=== PATIENT | male | born 1965 | race Caucasian/White ===

== ENCOUNTER → 2017-05-24 15:54 | Outpatient (CLI) | payer MEDICARE, MEDICAID, SELFPAY ==
--- NOTE | 2017-05-24 15:56 | CT_ITS ---
STUDY: CT LUMBAR SPINE WITHOUT CONTRAST REASON FOR EXAM: Male, 52 years old. Malignant neoplasm of the prostate. RADIATION DOSAGE (If Supplied By Facility): CTDIvol = ( 19.66 ) mGy, DLP = ( 477.68 ) mGycm TECHNIQUE: The patient was scanned in a multi detector CT scanner. High resolution transaxial imaging was performed. Images were obtained from T12 to the same. Sagittal and coronal images were reconstructed. Individualized dose optimization techniques were used for this CT. COMPARISON: Thoracic spine CT, May 24, 2017. Bone scan, March 18, 2000 8T FINDINGS: Normal lumbar lordosis. There is no substantial scoliosis. Normal alignment of the lumbar vertebral bodies. There is a vague area of sclerosis centrally within the body of L2. There is minimal focus of sclerosis in the right lateral L2 vertebral body. There is also a focal area of sclerosis anteriorly at L5. Also noted are vague area of sclerosis in both des and right sacral ala. There is no fracture. L1-2: Normal endplates. Normal disc height and morphology. Normal bilateral facet joints. Normal central canal and bilateral lateral recesses. Normal bilateral intervertebral neural foramina. L2-3: Normal endplates. Normal disc height and morphology. Normal bilateral facet joints. Normal central canal and bilateral lateral recesses. Normal bilateral intervertebral neural foramina. L3-4: Normal endplates. Normal disc height and morphology. Normal bilateral facet joints. Normal central canal and bilateral lateral recesses. Normal bilateral intervertebral neural foramina. L4-5: Normal endplates. Normal disc height and morphology. Normal bilateral facet joints. Normal central canal and bilateral lateral recesses. Normal bilateral intervertebral neural foramina. L5-S1: Normal endplates. Normal disc height and morphology. Normal bilateral facet joints. Normal central canal and bilateral lateral recesses. Normal bilateral intervertebral neural foramina. There appears to be a small calcification in the right renal calyx without hydronephrosis. There is atherosclerotic changes of the visualized aorta. CT/Spine Lumbar without Contrast IMPRESSION: Multiple vague areas of sclerosis lumbar spine and upper pelvis. These may represent small areas of metastatic activity. Electronically Signed: Franko Paez DO at 17:19 EST Tel [phone], Service support ,
--- NOTE | 2017-05-24 15:56 | CT_ITS ---
STUDY: CT THORACIC SPINE WITHOUT CONTRAST REASON FOR EXAM: Male, 52 years old. Prostate cancer. RADIATION DOSAGE (If Supplied By Facility): CTDIvol = ( 26.08 ) mGy, DLP = ( 836 ) mGycm TECHNIQUE: The patient was scanned in a multi detector CT scanner. High resolution imaging was performed. Images were obtained from T1 to L. Sagittal and coronal images were reconstructed. Individualized dose optimization techniques were used for this CT. COMPARISON: Bone scan, May 18, 2017. FINDINGS: Normal visualized cervical spine. Normal kyphosis of the thoracic spine. There is no substantial scoliosis. There is marked sclerosis of the T5 vertebra without loss of vertebral axial height. There are small foci in the upper portion of T6. There are small sclerotic foci in the right lateral aspect of T7. There is a sclerotic focus anteriorly in the right of T9. There is a sclerotic focus in the T11 vertebral body which extends into the left posterior elements. There is no evidence of endplate spondylosis. Normal disc spaces heights. The soft tissue structures are unremarkable. CT/Spine Thoracic without Contras IMPRESSION: Sclerotic foci involving T5, T6, T7 and T9 and T11. This is most marked in T5 which correlates with the area of intense activity in the mid thoracic spine on bone scan. There is involvement of the left lateral elements of T11 which also correlates with the focus of intense activity at this level on bone scan. These most likely represent metastatic involvement. Electronically Signed: Franko Paez DO at 17:06 EST Tel [phone], Service support ,
--- NOTE | 2017-05-24 15:56 | CT_ITS ---
STUDY: CT PELVIS WITHOUT CONTRAST REASON FOR EXAM: Male, 52 years old. Malignant neoplasm prostate cancer RADIATION DOSAGE (If Supplied By Facility): CTDIvol = ( 21.74 ) mGy, DLP = ( 615.17 ) mGycm TECHNIQUE: Transaxial 2.5 mm imaging of the pelvis was performed without oral contrast, and without intravenous administration of contrast material. Multiplanar coronal and sagittal images were reformatted. Individualized dose optimization techniques were used for this CT. COMPARISON: CT abdomen and pelvis 02/18/2017 FINDINGS: Decompressed urinary bladder. Prostate is not visualized. Normal visualized small intestine. There are multiple colonic diverticula of the sigmoid colon consistent with chronic diverticulosis. There is mild wall thickening without pericolonic fat stranding. Normal appendix. There is no pelvic fluid. There is no pelvic mass lesion or lymphadenopathy. There is stable mild atherosclerosis of the distal abdominal aorta and proximal pelvic arteries. There is a stable right inguinal hernia containing fat. There are mild degenerative changes of the visualized lumbar spine. Scattered sclerotic foci in the right pubis is slightly increased since previous examination, foci along the left acetabulum, left ischium appear stable, increased sclerosis involving the L5 vertebral body, right sacrum measuring 0.9, and s2-3 measuring 2.7 cm. Additional smaller scattered foci are noted.. CT/Pelvis without IV Contrast IMPRESSION: Colonic diverticulosis, possible underlying chronic inflammation with wall thickening, however no pericolonic inflammation to suggest acute diverticulitis. Increasing sclerosis of some foci involving the lumbar spine, sacrum and pelvis. Prostate is not visualized. Stable mild arteriosclerosis, right inguinal hernia containing fat, degenerative changes. Electronically Signed: Kyung Wolf MD at 6:47 EST , Service support ,
--- NOTE | 2017-05-24 15:56 | CT_ITS ---
STUDY: CT CERVICAL SPINE WITHOUT CONTRAST REASON FOR EXAM: Male, 52 years old. Prostate cancer. RADIATION DOSAGE (If Supplied By Facility): CTDIvol = ( 25.64 ) mGy, DLP = ( 590.71 ) mGycm TECHNIQUE: High resolution transaxial imaging was performed without contrast material. Sagittal and coronal images were reconstructed. Individualized dose optimization techniques were used for this CT. COMPARISON: Bone scan, May 23, 2017. FINDINGS: Normal craniovertebral junction. There are degenerative changes of the anterior atlantoaxial articulation. Normal odontoid process. Normal cervical lordosis. Normal vertebral bodies and posterior osseous elements. There is no evidence of acute fracture or loss of vertebral axial height. C2-3: Normal endplates. Normal disc height and morphology. Normal central canal and intervertebral neuroforamina. C3-4: Normal endplates. Normal disc height and morphology. Normal central canal and intervertebral neuroforamina. C4-5: Normal endplates. Normal disc height and morphology. Normal central canal and intervertebral neuroforamina. C5-6: Normal endplates. Minimal loss of disc height. There is mild facet and uncovertebral joint degenerative change.. Normal central canal and intervertebral neuroforamina. C6-7: Loss of disc height with minimal endplate spondylosis. There is facet and uncovertebral joint degenerative change. Normal central canal is mild narrowing of the right intervertebral neuroforamen. C7-T1: Normal endplates. Normal disc height and morphology. Normal central canal and intervertebral neuroforamina. Normal visualized soft tissue structures. CT/Spine Cervical without Contras IMPRESSION: Minimal degenerative changes lower cervical spine. There is no evidence of lytic or blastic lesion. There is no fracture or subluxation. Electronically Signed: Franko Paez DO at 16:52 EST Tel [phone], Service support ,
== END ==
PROVIDERS: Visit Provider Internal Medicine Hematology & Oncology
DX: C61 Malignant neoplasm of prostate (principal); C62.90 Malignant neoplasm of unspecified testis, unspecified whether descended or undescended
CPT/HCPCS: 72125; 72128; 72131; 72192

== ENCOUNTER 2017-06-13 14:30 | Emergency (ER) | payer MEDICARE, MEDICAID, SELFPAY ==
[2017-06-13 14:34] VITALS: BP 147/88; PULSE 66; RESP 16; TEMP 37.1; O2SAT 96; BMI 29.5
--- NOTE | 2017-06-13 15:23 | EKG12_ITS ---
Test Reason : CP Blood Pressure : / mmHG Vent. Rate : 054 BPM Atrial Rate : 054 BPM P-R Int : 136 ms QRS Dur : 092 ms QT Int : 424 ms P-R-T Axes : 039 -12 040 degrees QTc Int : 402 ms Sinus bradycardia Otherwise normal ECG Confirmed by MICHELLE ODELL, BRENDA ([id number]), photography editor PETEY DIAZ ([id number] on 06/16/2017 1:58:00 PM Referred By: Williams Richter Confirmed By:BRENDA MARTINEZ MD
--- NOTE | 2017-06-13 15:23 | CT_ITS ---
STUDY: CT ABDOMEN AND PELVIS WITHOUT CONTRAST REASON FOR EXAM: Male, 52 years old. Abdominal pain. History of diverticulitis and prostate cancer. RADIATION DOSAGE (If Supplied By Facility): CTDIvol = ( 12.40 ) mGy, DLP = ( 542.22 ) mGycm TECHNIQUE: Transaxial images were obtained from the dome of the diaphragm to the symphysis pubis without oral contrast, and without intravenous contrast. Sagittal and coronal images were reconstructed. Individualized dose optimization techniques were used for this CT. COMPARISON: Prior abdomen and pelvic CT exam of February 18, 2017 FINDINGS: Stable chronic basilar lung changes. The visualized portions of the heart are within normal limits. Normal liver. Normal gallbladder and extrahepatic biliary system. Normal spleen. Normal pancreas. Normal bilateral adrenal glands. Normal size of the right kidney with multiple 1 mm nonobstructing stones without hydronephrosis or ureteral stones. Cortical scarring and distortion in the lower pole with multiple 1 to 2 mm nonobstructing stones and a group of larger stones measuring up to 4 mm in diameter in the lower pole of the left kidney. Negative for hydronephrosis or ureteral stones. Normal visualized stomach. Normal small intestine. Mild pericolonic edema associated with the mid descending colon without evidence of perforation or abscess formation. The appendix is visualized and appears normal. There is diffuse atherosclerotic calcification of the abdominal aorta, without a demonstrated aneurysm. Normal inferior vena cava. Normal retroperitoneum. Small volume urinary bladder. Status post prostatectomy. Small fatty right inguinal hernia. Sclerotic lesions of the sacrum, L5, L3, L2 and T11. Multiple osteosclerotic lesions of the pelvis bilaterally. The distribution of lesions is similar to the prior abdomen and pelvic CT exam of February 18, 2017 although there has been some increase size or at least increased sclerosis associated with the lesion above the left acetabulum, right sacrum, L5 and one of the [address]/Abdomen/Pelvis without Cont IMPRESSION: Acute diverticulitis of the mid descending colon. Mild to moderate pericolonic edema without abscess or evidence of perforation. Multiple nonobstructing renal stones as listed above without hydronephrosis or ureteral stones. Status post prostatectomy with a nondistended urinary bladder. Multiple osteoblastic lesions of the lower thoracic spine, lumbar spine and pelvis in a similar distribution to the prior exam. Multiple lesions have increased moderately in size since the prior exam as described above. Negative for evidence of a pathologic fracture. Electronically Signed: Kourtney Omer MD at 17:06 EST , Service support ,
--- NOTE | 2017-06-13 15:30 | ED.DCSUM_ITS ---
- ER Visit Summary Date of Service: 06/13/17 Chief Complaint: Abdominal pain and cough History of Present Illness: The patient is a 52 M history of prostate testicular cancer with bone metastases. He is currently undergoing oral chemotherapy. Patient reports pain to the left lower quadrant of his abdomen for the last several weeks it feels like a flare of his diverticulitis. He has not had fever but has noted chills. He is also been fighting a cough states he has been bringing up some yellow sputum. He is scheduled to see a primary care physician tomorrow for a first-time visit. Her abdominal surgeries include prostatectomy, left testicle removal, and right inguinal hernia repair. Physical Examination: Signs are unremarkable. Patient is afebrile. Head neck examination is unremarkable. Heart is regular rate and rhythm. Lung sounds are clear. Abdomen is soft with tenderness across the upper abdomen and left lower quadrant. There is no guarding or rebound. Hypoactive but present bowel sounds are noted. Test Results: BC was normal white count with hemoglobin 12.5. Chemistry studies normal. Urine is normal. EKG is sinus at 54 with no sign of acute ischemia. Two-view chest x-ray shows no acute changes. No focal consolidation. CT abdomen pelvis without contrast reveals acute diverticulitis of the mid descending colon. There is mild to moderate pericolic edema without abscess or perforation. Again noted are bony metastases. Emergency Department Course and Treatment: Patient was given morphine, Zofran, and IV fluids here. He will be treated with a course of Augmentin, first dose given here. He is to follow-up with his primary care physician tomorrow as scheduled. Treatment Plan: [] Disposition: Discharge Impression: Diverticulitis This note was generated with [employer] dictation software. It may contain incorrect words, spelling, and punctuation that were not noted in review of the chart prior to signing ED Disposition - Plan for ED Patient: Chief Complaint: Abd Pain Referrals: Care Physician,No Primary [Primary Care Provider] -
[2017-06-13 15:59] LABS: Absolute Lymphocyte Count 1.39 X10^3/ul (0.83-4.51); Absolute Neutrophil Count 7.6 X10^3/uL (2.0-7.7); Basophil# 0.01 X10^3/uL; Basophil% 0.1 % (0-1); Hematocrit 37.7 % (40-54); Hemoglobin 12.5 g/dl (13.0-16.5); Lymphocyte # 1.39 X10^3/ul (4.0); Lymphocyte % 14.2 % (19-41); Mean Corp Hgb Conc 33.2 g/gl (32-36); Mean Corpuscular Hgb 31.7 pg (27.0-32.0); Mean Corpuscular Volume 95.7 fL (80-94); Mean Platelet Vol. 9.6 fl (6.2-12.0); Monocyte# 0.71 X10^3/uL; Monocyte% 7.2 % (0-10); Neutrophil # 7.56 X10^3/uL (2.7-7.7); Neutrophil % 77.2 % (47-70); Platelet Count 278 K/mm3 (150-450); RBC Distribution Width CV 13.5 % (11.6-14.6); RBC Distribution Width SD 47.2 fl (35.1-43.9); Red Blood Count 3.94 M/mm3 (4.6-6.2); White Blood Count 9.8 K/mm3 (4.4-11.0)
[2017-06-13] MEDS: Ondansetron 4 MG/2 ML Vial IV (16:01)
[2017-06-13] MEDS: 0.9% Normal Saline 1,000 ML 150 ML IV (16:01)
[2017-06-13 16:03] VITALS: RESP 17
[2017-06-13 16:04] LABS: POSITIVE COUNT NO; POSITIVE DIFFERENTIAL NO; POSITIVE MORPHOLOGY NO
[2017-06-13 16:09] LABS: Anion Gap 8 (5-15); BUN 10 mg/dL (7-18); BUN/Creat Ratio 12.1 RATIO (10-20); Calcium,Total 8.6 mg/dL (8.5-10.1); Chloride 107 mmol/L (98-107); Creatinine, Serum 0.82 mg/dL (0.70-1.30); EST Glomerular Filtration Rate 104 mL/min (>60); Est Glom Filt Rate - Afr Amer 125 mL/min (>60); Estimated Creatinine Clearance 94.01 ml/min; Glucose 111 mg/dL (74-106); Potassium 3.6 mmol/L (3.5-5.1); Sodium Level 142 mmol/L (136-145)
--- NOTE | 2017-06-13 16:22 | RAD_ITS ---
STUDY: X-RAY CHEST REASON FOR EXAM: Male, 52 years old. Cough and shortness of breath. History of prostate cancer 3 years ago. TECHNIQUE: 2 views COMPARISON: Prior portable chest of May 30, 2012 FINDINGS: Lung street are well-expanded and are clear of acute infiltrates. Negative for new consolidation or focal atelectasis. There is no demonstrated pleural abnormality. Normal size heart. Normal mediastinum and radha. Normal visualized pulmonary arteries. There is atherosclerotic tortuosity of the aortic arch and descending thoracic aorta. There is demineralization of the osseous structures. Normal visualized ribs, clavicles, and shoulders. There is no demonstrated abnormality of the visualized soft tissue structures of the upper abdomen. RAD/Chest PA and Lateral IMPRESSION: No acute cardiopulmonary findings or changes. Negative for new consolidation, focal atelectasis or a substantial pleural effusion. Normal cardiac size. Atherosclerosis. Electronically Signed: Kourtney Omer MD at 16:41 EST , Service support ,
[2017-06-13 16:39] LABS: Bacteria 0 SEEN /hpf (None Seen); Squamous Epithelial Cells - UA 0 SEEN /hpf (0-5); White Blood Cells 0 SEEN /hpf (0-5)
[2017-06-13 16:45] LABS: Color, Urine Yellow (Yellow); Glucose, Dipstick Normal (Normal); Ketone-Dipstick Negative (Negative); Leukocyte Esterase-Dipstick 25 /ul (Negative); Nitrite-Dipstick Negative (Negative); Occult Blood-Urine 10 /ul (Negative); Protein-Dipstick Negative (Negative); Specific Gravity, Urine 1.015 (1.002-1.030); Urine Bilirubin Dipstick Negative (Negative); Urine Clarity Clear (Clear); Urine Urobilinogen 1 mg/dl (Normal)
[2017-06-13 16:51] LABS: Mucous, Urine 1+ /hpf (<or=2+); Red Blood Cells-Urine 0-5 SEEN /hpf (0-5)
--- NOTE | 2017-06-13 17:37 | ED.DEP ---
ED Disposition - Plan for ED Patient: Disposition: Home or Assisted Living Chief Complaint: Abd Pain Instructions: ED Diverticulitis Prescriptions: Amox/Clavulanate Tablet [Augmentin Tablet] 875 mg PO Q12H #20 tablet Referrals: Chau Flaherty DO [STAFF PHYSICIAN] - Keep Becki appointment
[2017-06-13] MEDS: Amox/Clavulanate 875 MG Tablet PO (17:43)
[2017-06-13 17:49] VITALS: PULSE 62; RESP 16; O2SAT 96
== END 2017-06-13 17:51 | disposition home or self-care (01) ==
PROVIDERS: Emergency Provider Emergency Medicine
DX: K57.32 Diverticulitis of large intestine without perforation or abscess without bleeding (principal); R05 Cough; I25.10 Atherosclerotic heart disease of native coronary artery without angina pectoris; J44.9 Chronic obstructive pulmonary disease, unspecified; I10 Essential (primary) hypertension; F41.9 Anxiety disorder, unspecified; F32.9 Major depressive disorder, single episode, unspecified; C79.51 Secondary malignant neoplasm of bone; Z85.46 Personal history of malignant neoplasm of prostate; Z85.47 Personal history of malignant neoplasm of testis; Z87.19 Personal history of other diseases of the digestive system; Z90.79 Acquired absence of other genital organ(s); Z79.899 Other long term (current) drug therapy; Z72.0 Tobacco use
CPT/HCPCS: 71046; 74176; 80048; 81001; 85025; 93005; 96361; 96374; 96375; 99284; J2405

== ENCOUNTER → 2017-06-15 08:38 | Outpatient (CLI) | payer MEDICARE, SELFPAY ==
[2017-06-15 12:27] LABS: Amphetamine Urine VISTA NEGATIVE (<1000 ng/mL); Barbiturate Urine VISTA NEGATIVE (< 200 ng/mL); Benzodiazepine Urine VISTA POSITIVE (< 200 ng/mL); Cocaine Urine VISTA NEGATIVE (< 300 ng/mL); Ecstacy Urine VISTA NEGATIVE (< 500 ng/mL); Methadone Urine VISTA NEGATIVE (< 300 ng/mL); PCP Urine VISTA NEGATIVE (< 25 ng/mL); THC Urine VISTA POSITIVE (< 50 ng/mL); Vista UDS pH Range 5
== END ==
PROVIDERS: Family Provider Family Medicine; PCP Family Medicine; Visit Provider Family Medicine
DX: Z51.81 Encounter for therapeutic drug level monitoring (principal)
CPT/HCPCS: 80307

== ENCOUNTER → 2017-07-01 16:40 | Outpatient (CLI) | payer MEDICARE, SELFPAY ==
[2017-07-01 17:56] LABS: Absolute Lymphocyte Count 1.62 X10^3/ul (0.83-4.51); Absolute Neutrophil Count 5.2 X10^3/uL (2.0-7.7); Basophil# 0.01 X10^3/uL; Basophil% 0.1 % (0-1); Eosinophil# 0.14 X10^3/uL; Eosinophils% 1.8 % (0-5); Hematocrit 40.7 % (40-54); Hemoglobin 13.7 g/dl (13.0-16.5); Lymphocyte # 1.62 X10^3/ul (4.0); Lymphocyte % 21.3 % (19-41); Mean Corp Hgb Conc 33.7 g/gl (32-36); Mean Corpuscular Hgb 31.9 pg (27.0-32.0); Mean Corpuscular Volume 94.7 fL (80-94); Mean Platelet Vol. 10.3 fl (6.2-12.0); Monocyte# 0.58 X10^3/uL; Monocyte% 7.6 % (0-10); Neutrophil # 5.22 X10^3/uL (2.7-7.7); Neutrophil % 68.8 % (47-70); Platelet Count 303 K/mm3 (150-450); RBC Distribution Width CV 13.4 % (11.6-14.6); RBC Distribution Width SD 44.4 fl (35.1-43.9); White Blood Count 7.6 K/mm3 (4.4-11.0)
[2017-07-01 18:07] LABS: POSITIVE COUNT NO; POSITIVE DIFFERENTIAL NO; POSITIVE MORPHOLOGY NO
[2017-07-01 18:15] LABS: AST(SGOT) 13 U/L (15-37); Alanine Aminotransfer ALT/SGPT 19 U/L (16-61); Albumin, Serum 3.4 g/dL (3.2-5.0); Alkaline Phosphatase 79 U/L (45-117); Anion Gap 11 (5-15); BUN 10 mg/dL (7-18); BUN/Creat Ratio 11.7 RATIO (10-20); Calcium,Total 8.7 mg/dL (8.5-10.1); Chloride 106 mmol/L (98-107); Creatinine, Serum 0.85 mg/dL (0.70-1.30); EST Glomerular Filtration Rate 100 mL/min (>60); Est Glom Filt Rate - Afr Amer 120 mL/min (>60); Globulin 3.5 g/dL (2.2-4.2); Glucose 118 mg/dL (74-106); Potassium 3.5 mmol/L (3.5-5.1); Protein, Total 6.9 g/dL (6.4-8.2); Sodium Level 140 mmol/L (136-145)
== END ==
PROVIDERS: Family Provider Family Medicine; PCP Family Medicine; Visit Provider Internal Medicine Hematology & Oncology
DX: C61 Malignant neoplasm of prostate (principal); C62.90 Malignant neoplasm of unspecified testis, unspecified whether descended or undescended; R91.1 Solitary pulmonary nodule; C79.51 Secondary malignant neoplasm of bone
CPT/HCPCS: 36415; 80053; 84153; 85025

== ENCOUNTER → 2017-07-27 16:09 | Outpatient (CLI) | payer MEDICARE, SELFPAY ==
[2017-07-27 18:52] LABS: Absolute Lymphocyte Count 1.54 X10^3/ul (0.83-4.51); Absolute Neutrophil Count 6.7 X10^3/uL (2.0-7.7); Basophil# 0.01 X10^3/uL; Basophil% 0.1 % (0-1); Eosinophil# 0.12 X10^3/uL; Eosinophils% 1.3 % (0-5); Hematocrit 42.1 % (40-54); Hemoglobin 14.2 g/dl (13.0-16.5); Lymphocyte # 1.54 X10^3/ul (4.0); Mean Corp Hgb Conc 33.7 g/gl (32-36); Mean Corpuscular Hgb 31.2 pg (27.0-32.0); Mean Corpuscular Volume 92.5 fL (80-94); Mean Platelet Vol. 10.7 fl (6.2-12.0); Monocyte# 0.64 X10^3/uL; Monocyte% 7.1 % (0-10); Neutrophil # 6.72 X10^3/uL (2.7-7.7); Neutrophil % 74.2 % (47-70); Platelet Count 308 K/mm3 (150-450); RBC Distribution Width CV 13.2 % (11.6-14.6); RBC Distribution Width SD 43.8 fl (35.1-43.9); Red Blood Count 4.55 M/mm3 (4.6-6.2); White Blood Count 9.1 K/mm3 (4.4-11.0)
[2017-07-27 18:53] LABS: POSITIVE COUNT NO; POSITIVE DIFFERENTIAL NO; POSITIVE MORPHOLOGY NO
[2017-07-27 19:01] LABS: ALB/GLOB Ratio 0.9 RATIO (0.9-2.4); AST(SGOT) 24 U/L (15-37); Alanine Aminotransfer ALT/SGPT 25 U/L (16-61); Albumin, Serum 3.5 g/dL (3.2-5.0); Alkaline Phosphatase 96 U/L (45-117); Anion Gap 10 (5-15); BUN 8 mg/dL (7-18); Calcium,Total 9.2 mg/dL (8.5-10.1); Chloride 105 mmol/L (98-107); EST Glomerular Filtration Rate 107 mL/min (>60); Est Glom Filt Rate - Afr Amer 130 mL/min (>60); Globulin 3.8 g/dL (2.2-4.2); Glucose 108 mg/dL (74-106); Potassium 3.7 mmol/L (3.5-5.1); Protein, Total 7.3 g/dL (6.4-8.2); Sodium Level 139 mmol/L (136-145)
== END ==
PROVIDERS: Family Provider Family Medicine; PCP Family Medicine; Visit Provider Internal Medicine Hematology & Oncology
DX: K57.92 Diverticulitis of intestine, part unspecified, without perforation or abscess without bleeding (principal); Z79.899 Other long term (current) drug therapy; C62.90 Malignant neoplasm of unspecified testis, unspecified whether descended or undescended; C61 Malignant neoplasm of prostate; C79.51 Secondary malignant neoplasm of bone
CPT/HCPCS: 36415; 80053; 84153; 85025

== ENCOUNTER → 2017-08-06 12:24 | Outpatient (CLI) | payer MEDICARE, SELFPAY | PROVIDERS: Family Provider Family Medicine; PCP Family Medicine; Visit Provider Family Medicine | DX: R36.9 Urethral discharge, unspecified (principal); R31.9 Hematuria, unspecified | CPT/HCPCS: 87086 ==

== ENCOUNTER → 2017-08-26 16:45 | Outpatient (CLI) | payer MEDICARE, SELFPAY ==
[2017-08-26 17:27] LABS: Absolute Lymphocyte Count 1.95 X10^3/ul (0.83-4.51); Absolute Neutrophil Count 6.2 X10^3/uL (2.0-7.7); Basophil# 0.02 X10^3/uL; Basophil% 0.2 % (0-1); Eosinophil# 0.24 X10^3/uL; Eosinophils% 2.6 % (0-5); Hematocrit 41.9 % (40-54); Hemoglobin 13.5 g/dl (13.0-16.5); Lymphocyte # 1.95 X10^3/ul (4.0); Lymphocyte % 21.5 % (19-41); Mean Corp Hgb Conc 32.2 g/gl (32-36); Mean Corpuscular Hgb 29.9 pg (27.0-32.0); Mean Corpuscular Volume 92.7 fL (80-94); Mean Platelet Vol. 10.5 fl (6.2-12.0); Monocyte% 7.7 % (0-10); Neutrophil # 6.15 X10^3/uL (2.7-7.7); Neutrophil % 67.9 % (47-70); Platelet Count 279 K/mm3 (150-450); RBC Distribution Width CV 13.8 % (11.6-14.6); RBC Distribution Width SD 46.2 fl (35.1-43.9); Red Blood Count 4.52 M/mm3 (4.6-6.2); White Blood Count 9.1 K/mm3 (4.4-11.0)
[2017-08-26 17:28] LABS: POSITIVE COUNT NO; POSITIVE DIFFERENTIAL NO; POSITIVE MORPHOLOGY NO
[2017-08-26 17:51] LABS: AST(SGOT) 23 U/L (15-37); Alanine Aminotransfer ALT/SGPT 23 U/L (16-61); Albumin, Serum 3.5 g/dL (3.2-5.0); Alkaline Phosphatase 100 U/L (45-117); Anion Gap 10 (5-15); BUN 11 mg/dL (7-18); Calcium,Total 9.1 mg/dL (8.5-10.1); Chloride 106 mmol/L (98-107); Creatinine, Serum 0.92 mg/dL (0.70-1.30); EST Glomerular Filtration Rate 92 mL/min (>60); Est Glom Filt Rate - Afr Amer 111 mL/min (>60); Globulin 3.4 g/dL (2.2-4.2); Glucose 126 mg/dL (74-106); Potassium 3.7 mmol/L (3.5-5.1); Protein, Total 6.9 g/dL (6.4-8.2); Sodium Level 142 mmol/L (136-145)
== END ==
PROVIDERS: Family Provider Family Medicine; PCP Family Medicine; Visit Provider Internal Medicine Hematology & Oncology
DX: C61 Malignant neoplasm of prostate (principal); K57.90 Diverticulosis of intestine, part unspecified, without perforation or abscess without bleeding; C79.51 Secondary malignant neoplasm of bone
CPT/HCPCS: 36415; 80053; 84153; 85025

== ENCOUNTER → 2017-08-30 16:09 | Outpatient (CLI) | payer MEDICARE, MEDICAID, SELFPAY ==
--- NOTE | 2017-08-30 16:20 | RAD_ITS ---
STUDY: X-RAY - THORACIC SPINE REASON FOR EXAM: Male, 52 years old. Severe upper back pain after mowing lawn. History of prostate cancer with bone metastases. TECHNIQUE: 3 view(s) of the thoracic spine were obtained. COMPARISON: CT of the thoracic spine, May 24, 2017. FINDINGS: Normal kyphosis of the thoracic spine. There is no substantial scoliosis. There is demineralization of the thoracic spine. There are vague areas of sclerosis in the mid thoracic spine are thought to correlate with the carotic lesion seen on the CT. Also seen is sclerosis and slight volume loss of the T4 vertebra which appears unchanged. There is multilevel disc space narrowing of the thoracic spine. The soft tissue structures are unremarkable. RAD/Thoracic Spine 3 Views IMPRESSION: 1. Osteopenia with scattered sclerotic lesions unchanged from prior CT. 2. Slight volume loss and increased sclerosis and T4 unchanged from prior study. No new compression deformities are seen. Electronically Signed: Franko Paez DO at 22:58 EDT Tel [phone], Service support ,
== END ==
PROVIDERS: Family Provider Family Medicine; PCP Family Medicine; Visit Provider Family Medicine
DX: M54.6 Pain in thoracic spine (principal)
CPT/HCPCS: 72072

== ENCOUNTER → 2017-09-29 09:30 | Outpatient (CLI) | payer MEDICARE, MEDICAID, SELFPAY ==
--- NOTE | 2017-09-29 09:00 | NM_ITS ---
CLINICAL: Male, 52 years old. Prostate cancer WHOLE BODY NUCLEAR BONE SCAN TECHNIQUE: Following the IV administration of 26.1 mCi of Tc MDP, whole body bone imaging was performed with a gamma camera following a three hour delay. COMPARISON STUDIES : NM - May 18, 2017 CR - Not available for review at this time. CT - Not available for review at this time. MR - Not available for review at this time. US - Not available for review at this time. FINDINGS: There are numerous worsening foci of increased radiotracer activity including in the right more than left shoulders, the sternum, focal bilateral ribs, the spine and pelvis and proximal femurs, and skull consistent with osseous metastatic disease. Soft tissue distribution is normal. NM/Bone Scan Whole Body IMPRESSION: Worsening osseous metastatic disease. Electronically Signed: Bronson Starkey MD at 11:56 EDT , Service support ,
--- NOTE | 2017-09-29 09:30 | DT_ITS ---
This patient was seen during an EMR downtime September 27, 2017 - October 04, 2017. This patient may have a combination of paper and electronic documentation or all paper documentation. All documentation is viewable within the e-chart portion of [facility] for each patient visit.
--- NOTE | 2017-09-29 14:00 | CT_ITS ---
STUDY: CT THORACIC SPINE WITHOUT CONTRAST REASON FOR EXAM: Male, 52 years old. Prostate cancer. RADIATION DOSAGE (If Supplied By Facility): CTDIvol = ( 20.23 ) mGy, DLP = ( 2069.56 ) mGycm TECHNIQUE: The patient was scanned in a multi detector CT scanner. High resolution imaging was performed. Images were obtained from C7 to L1. Sagittal and coronal images were reconstructed. Individualized dose optimization techniques were used for this CT. COMPARISON: X-ray August 30, 2017. CT May 04, 2017 FINDINGS: Normal visualized cervical spine. Normal kyphosis of the thoracic spine. There is no substantial scoliosis. There is mild degenerative change. There are increased size and number of sclerotic lesions of the thoracic vertebra consistent with metastatic disease including of the T2, T4, T5, T6, T7, T8, T9, T11 and T12 vertebra . There is T5 compression fracture with 20% loss of height. Mild paraspinal soft tissue swelling at the T5 level. CT/Spine Thoracic without Contras IMPRESSION: Worsening osseous metastatic disease with mild T5 compression fracture. Electronically Signed: Bronson Starkey MD at 14:24 EDT , Service support ,
--- NOTE | 2017-09-29 14:00 | CT_ITS ---
STUDY: CT LUMBAR SPINE WITHOUT CONTRAST REASON FOR EXAM: Male, 52 years old. Prostate cancer. RADIATION DOSAGE (If Supplied By Facility): CTDIvol = ( 20.23 ) mGy, DLP = ( 2069.56 ) mGycm TECHNIQUE: The patient was scanned in a multi detector CT scanner. High resolution transaxial imaging was performed. Images were obtained from T12 to sacrum. Sagittal and coronal images were reconstructed. Individualized dose optimization techniques were used for this CT. COMPARISON: May 24, 2017 FINDINGS: Normal lumbar lordosis. There is no substantial scoliosis. Normal vertebrae of the lumbar spine. There are increased sclerotic lesions of the L2, L3, L4, and L5 vertebra and sacrum and iliac bones consistent with worsening metastatic disease. There is no acute fracture. L1-2: Normal endplates. Normal disc height and morphology. Normal bilateral facet joints. Normal central canal and bilateral lateral recesses. Normal bilateral intervertebral neural foramina. L2-3: Normal endplates. Normal disc height and morphology. Normal bilateral facet joints. Normal central canal and bilateral lateral recesses. Normal bilateral intervertebral neural foramina. L3-4: Disc bulge. Normal bilateral facet joints. Normal central canal and bilateral lateral recesses. Normal bilateral intervertebral neural foramina. L4-5: Normal endplates. Normal disc height and morphology. Normal bilateral facet joints. Normal central canal and bilateral lateral recesses. Normal bilateral intervertebral neural foramina. L5-S1: Normal endplates. Mild disc bulge. Normal bilateral facet joints. Normal central canal and bilateral lateral recesses. Normal bilateral intervertebral neural foramina. Normal visualized paraspinous soft tissue structures. There is a 0.3 cm right renal calcification. CT/Spine Lumbar without Contrast IMPRESSION: Worsening osseous metastatic disease with increase in size and number of sclerotic lesions. No acute fracture. Mild degenerative change. Electronically Signed: Bronson Starkey MD at 14:17 EDT , Service support ,
--- NOTE | 2017-09-29 14:00 | CT_ITS ---
STUDY: CT CHEST WITHOUT CONTRAST REASON FOR EXAM: Male, 52 years old. Prostate cancer. RADIATION DOSAGE (If Supplied By Facility): CTDIvol = ( 20.23 ) mGy, DLP = ( 2069.56 ) mGycm TECHNIQUE: Transaxial imaging was performed without the administration of intravenous contrast material. Multiplanar coronal and sagittal images were reformatted. Individualized dose optimization techniques were used for this CT. COMPARISON: Chest x-ray June 13, 2017. Chest CT March 30, 2017. FINDINGS: There is emphysema of the lungs with fibrotic densities. No dominant mass or nodule. There is no demonstrated pleural abnormality. There are calcifications of the coronary arteries. Normal mediastinum. Normal hilar regions. Normal unenhanced pulmonary arteries. Normal aorta arch and descending thoracic aorta. There are numerous sclerotic regions throughout the osseous structures including the spine, ribs, scapula, and sternum. There is mild compression fracture of T5. There is no demonstrated abnormality of the visualized upper abdomen. CT/Chest without Contrast IMPRESSION: Emphysema with fibrotic densities. No dominant nodule in the lungs. Osseous metastatic disease with worsening compared to prior exam. Electronically Signed: Bronson Starkey MD at 8:15 EDT , Service support ,
--- NOTE | 2017-09-29 14:00 | CT_ITS ---
STUDY: CT CERVICAL SPINE WITHOUT CONTRAST REASON FOR EXAM: Male, 52 years old. Prostate cancer. RADIATION DOSAGE (If Supplied By Facility): CTDIvol = ( 20.23 ) mGy, DLP = ( 2069.56 ) mGycm TECHNIQUE: High resolution transaxial imaging was performed without contrast material. Sagittal and coronal images were reconstructed. Individualized dose optimization techniques were used for this CT. COMPARISON: CT May 24, 2017 FINDINGS: Normal craniovertebral junction. There are degenerative changes of the anterior atlantoaxial articulation. Normal odontoid process. Normal cervical lordosis. Normal vertebral bodies and posterior osseous elements. No fracture seen. No destruction. C2-3: Normal endplates. Normal disc height and morphology. Normal central canal and intervertebral neuroforamina. Mild facet spurring on the left. C3-4: Normal endplates. Normal disc height and morphology. Normal central canal and intervertebral neuroforamina. Mild facet spurring. C4-5: Normal endplates. Normal disc height and morphology. Normal central canal and intervertebral neuroforamina. Mild facet spurring. C5-6: Disc bulge with mild spurring to the left. Facet spurring. Uncovertebral spurring with mild left foraminal narrowing. C6-7: Disc space narrowing. Disc bulge and spurring. Uncovertebral spurring with left greater than right foraminal narrowing. C7-T1: Normal endplates. Normal disc height and morphology. Normal central canal and intervertebral neuroforamina. Normal visualized soft tissue structures. CT/Spine Cervical without Contras IMPRESSION: Mild degenerative change. No destructive lesion. Electronically Signed: Bronson Starkey MD at 14:29 EDT , Service support ,
== END ==
PROVIDERS: Family Provider Family Medicine; PCP Family Medicine; Visit Provider Internal Medicine Hematology & Oncology
DX: R91.1 Solitary pulmonary nodule (principal); C62.90 Malignant neoplasm of unspecified testis, unspecified whether descended or undescended; C61 Malignant neoplasm of prostate; C79.51 Secondary malignant neoplasm of bone; Z79.899 Other long term (current) drug therapy
CPT/HCPCS: 71250; 72125; 72128; 72131; 78306

== ENCOUNTER 2017-10-16 16:21 | Observation (INO) | payer MEDICARE, MEDICAID, SELFPAY ==
[2017-10-16] VITALS (9 sets, daily range): BP systolic 154–175; BP diastolic 79–101; PULSE 55–64; RESP 15–18; TEMP 36.7; O2SAT 95–99; BMI 25.6; BMI 25.7
--- NOTE | 2017-10-16 16:53 | EKG12_ITS ---
Test Reason : DIZZINESS Blood Pressure : / mmHG Vent. Rate : 058 BPM Atrial Rate : 058 BPM P-R Int : 132 ms QRS Dur : 092 ms QT Int : 444 ms P-R-T Axes : 037 -18 035 degrees QTc Int : 435 ms Sinus bradycardia Otherwise normal ECG Confirmed by JAZMINE ODELL, CLARIBEL ([id number]), slot editor YULI HENSLEY ([id number] on 10/19/2017 10:16:12 AM Referred By: ANGUS Confirmed By:CLARIBEL LUCERO MD
--- NOTE | 2017-10-16 16:53 | RAD_ITS ---
STUDY: X-RAY CHEST REASON FOR EXAM: Male, 52 years old. Vertigo TECHNIQUE: Portable AP COMPARISON: June 13, 2017 FINDINGS: There is no new focal consolidation. There are stable prominent interstitial markings present. The cardiac silhouette is stable. Normal mediastinum and radha. Normal visualized pulmonary arteries. Normal visualized aortic arch and descending thoracic aorta. Normal visualized thoracic spine. Normal visualized ribs, clavicles, and shoulders. There is no demonstrated abnormality of the visualized soft tissue structures of the upper abdomen. RAD/Chest 1 View (Portable) IMPRESSION: No acute cardiopulmonary process. Electronically Signed: Meme German MD at 17:18 EDT Tel , Service support ,
--- NOTE | 2017-10-16 16:53 | CT_ITS ---
STUDY: CT BRAIN WITHOUT CONTRAST REASON FOR EXAM: Male, 52 years old. Dizziness. Prostate cancer. RADIATION DOSAGE (If Supplied By Facility): CTDIvol = ( 44.99 ) mGy, DLP = ( 796.11 ) mGycm TECHNIQUE: Transaxial CT imaging of the brain was performed without administration of intravenous contrast material. Individualized dose optimization techniques were used for this CT. COMPARISON: None. FINDINGS: Normal soft tissue structures. Normal calvarium. Normal size ventricles and extra-axial spaces for the patient's age. Normal white matter tracts of the cerebral hemispheres. Normal basal ganglia and thalami. Normal brainstem. Normal cerebellum. There is no intracranial hemorrhage. There are no findings of an acute ischemic infarction. Normal visualized paranasal sinuses. CT/Brain/Head without Contrast IMPRESSION: Normal unenhanced CT scan of the brain. Electronically Signed: Matheus Duque MD at 19:03 EDT , Service support ,
--- NOTE | 2017-10-16 16:56 | ED.VISSUMM ---
- ER Visit Summary Date of Service: 10/16/17 Chief Complaint: Dizziness History of Present Illness: The patient is a 52 M with dizziness for 4 days now. The episodes last about 5 minutes and he describes them as the room spinning. Worse with moving and sitting up. Worse with standing up. Patient has a history of prostate cancer with metastatic disease. He is not currently undergoing treatment. No other associated symptoms like visual cuts, facial droop, speech changes, or focal weakness. No history of stroke. His hearing changes or tinnitus. Physical Examination: Vital signs unremarkable. Afebrile. No acute distress. He is texting on his phone. Alert and oriented. Normal speech. HEENT exam grossly unremarkable. Cranial nerves normal. Neck is nontender. Heart regular. Lungs clear. Abdomen soft. Skin appears normal. No focal or lateralizing neurologic abnormalities. He does have right-sided nystagmus. Test Results: EKG, chest x-ray, CT head, and labs pending. Emergency Department Course and Treatment: Patient treated with meclizine while awaiting results. He has chronic hip pain and takes oxycodone at home. He requested something for pain, and he was treated with 2 tablets of [place]. Patient's workup was all fairly unremarkable. He continued to have some vertigo despite treatment with meclizine. It was very mild. He had vertigo while sitting in bed as well. He then told me that in the past he thinks he had a stroke. He said that he was evaluated because his vision went black momentarily and then resolved after a few minutes. Given his prior history, and continued symptoms, I am concerned this could be stroke related. I will discuss with the hospitalist for further inpatient evaluation Treatment Plan: As above Disposition: Admission Impression: 1. Vertigo This note was generated with [employer] dictation software. It may contain incorrect words, spelling, and punctuation that were not noted in review of the chart prior to signing ED Disposition - Plan for ED Patient: Chief Complaint: Dizziness Referrals: Chau Flaherty DO [Primary Care Provider] -
[2017-10-16] MEDS: HYDROcodone Bitartrate/Apap 5/325 Tablet PO (17:05)
--- NOTE | 2017-10-16 17:13 | ED.RN ---
pt reports room spinning
[2017-10-16 17:23] LABS: Absolute Lymphocyte Count 1.82 X10^3/ul (0.83-4.51); Absolute Neutrophil Count 5.4 X10^3/uL (2.0-7.7); Basophil# 0.01 X10^3/uL; Basophil% 0.1 % (0-1); Eosinophil# 0.17 X10^3/uL; Eosinophils% 2.1 % (0-5); Hematocrit 42.1 % (40-54); Hemoglobin 14.4 g/dl (13.0-16.5); Lymphocyte # 1.82 X10^3/ul (4.0); Lymphocyte % 22.6 % (19-41); Mean Corp Hgb Conc 34.2 g/gl (32-36); Mean Corpuscular Hgb 30.7 pg (27.0-32.0); Mean Corpuscular Volume 89.8 fL (80-94); Mean Platelet Vol. 10.1 fl (6.2-12.0); Monocyte# 0.64 X10^3/uL; Monocyte% 7.9 % (0-10); Neutrophil # 5.41 X10^3/uL (2.7-7.7); Neutrophil % 67.1 % (47-70); Platelet Count 262 K/mm3 (150-450); RBC Distribution Width CV 13.4 % (11.6-14.6); RBC Distribution Width SD 43.2 fl (35.1-43.9); Red Blood Count 4.69 M/mm3 (4.6-6.2); White Blood Count 8.1 K/mm3 (4.4-11.0)
[2017-10-16 17:24] LABS: POSITIVE COUNT NO; POSITIVE DIFFERENTIAL NO; POSITIVE MORPHOLOGY NO
[2017-10-16 17:36] LABS: Anion Gap 6 (5-15); BUN 11 mg/dL (7-18); BUN/Creat Ratio 13.1 RATIO (10-20); Calcium,Total 9.4 mg/dL (8.5-10.1); Chloride 104 mmol/L (98-107); Creatinine, Serum 0.84 mg/dL (0.70-1.30); EST Glomerular Filtration Rate 102 mL/min (>60); Est Glom Filt Rate - Afr Amer 123 mL/min (>60); Estimated Creatinine Clearance 95.08 ml/min; Glucose 109 mg/dL (74-106); Potassium 3.9 mmol/L (3.5-5.1); Sodium Level 137 mmol/L (136-145)
[2017-10-16] MEDS: Meclizine HCl 25 MG Tablet PO (17:40)
[2017-10-16] MEDS: Morphine 4 MG/ML Syringe IV (20:47)
--- NOTE | 2017-10-16 20:53 | MRI_ITS ---
STUDY: MRI BRAIN WITHOUT CONTRAST REASON FOR EXAM: Male, 52 years old. Vertigo for 5 days. TECHNIQUE: Standardized multiplanar fat and water weighted pulse sequences were obtained. COMPARISON: CT of the head dated October 17, 2015. FINDINGS: Normal size of the ventricles and extra-axial spaces for the patient's age. Is a tiny focus of abnormal T2 hyperintensity within the subcortical white matter measuring up to 3.3 mm in size. These are nonspecific in their appearance and could be the result of mild microvascular disease. There is no evidence for recent intracranial ischemia or other cause of cytotoxic edema on diffusion weighted imaging (DWI). Normal T2* images of the brain without demonstrated susceptibility artifact. There is no demonstrated hemosiderin stain. Normal bilateral basal ganglia. Normal thalami. There is no extra-axial fluid accumulation. Normal flow voids within the major intracranial circulation suggesting patency by spin echo criteria. There is increased CSF within the sella and flattening of the pituitary gland consistent with an empty sellar syndrome. Normal infundibular stalk, hypothalamus, and optic chiasm. Normal tectal plate and pineal gland. Normal midbrain, [place] and medulla. Normal cerebellum. There are large basal cisterns. Normal bilateral temporal bones. Normal bilateral internal auditory canals. No demonstrated orbital abnormality, within the constraints of a routine brain study. There is mucoperiosteal inflammatory disease of the paranasal sinuses consistent with mild chronic sinusitis. Normal calvarium and skull base. Normal visualized soft tissue structures. Normal visualized upper cervical spine. MRI/Brain without Contrast IMPRESSION: 1. Involutional changes of the brain, as described above. 2. No MR evidence for acute infarct. Electronically Signed: Susana Buck MD at 10:57 EDT , Service support ,
--- NOTE | 2017-10-16 21:26 | PCM.HP.STD ---
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 He has not been drinking much water. On Wednesday, he was stuck in the car and felt dizzy with the room spinning clockwise. He felt as if he was about to pass out whenever he stood up in the clinics. He was given some fluid and his symptoms improved. However, over the course over the next few days, he continued to feel dizzy. His dizzy is positional. Worse whenever he stood up and with head movement. Dizziness improved lying still. He thought he had visual changes in the past and was evaluated. His dizziness is episodic but the frequency and intensity have worsened. His dizziness is severe that he cannot do his ADLs. Past Medical History Past Medical History (Chronic Problems): Chronic Problems (Last Reviewed 09/15/17 @ 15:06 by Maya Carrillo) CAD (coronary artery disease) (Chronic) Anemia (Chronic) Bone metastases (Chronic) Osteoporosis (Chronic) Diverticular disease (Chronic) Prostate cancer (Chronic) Iron deficiency anemia (Chronic) CVD (cerebrovascular disease) (Chronic) HTN (hypertension) (Chronic) Medical History: Medical History (Last Reviewed 09/15/17 @ 15:06 by Maya Carrillo) Anxiety F41.9 Arthritis M19.90 Depression F32.9 Elevated PSA R97.20 Emphysema lung J43.9 GERD (gastroesophageal reflux disease) K21.9 Gastritis K29.70 Hemorrhoids K64.9 Hx of pneumothorax Z87.09 Inguinal hernia K40.90 Insomnia G47.00 Restless leg syndrome G25.81 Allergies Iodinated Contrast- Oral and IV Dye [CONTRASTS] Allergy (Severe, Verified 10/16/17 16:22) Anaphylaxis shellfish derived Allergy (Severe, Verified 10/16/17 16:22) Anaphylaxis Home Medications: Ambulatory Orders Medication Instructions Recorded ALPRAZolam [Xanax] 0.5 mg PO BID PRN PRN 02/18/17 Ergocalciferol [Vitamin D] 50,000 unit PO Q7D 02/18/17 Ibuprofen [Advil] 600 mg PO Q6H PRN PRN 02/18/17 Leuprolide Acetate [Lupron Depot] 30 mg IM QMONTH MDD 6 month 02/18/17 Metoprolol Tartrate [Lopressor 50 mg PO BID 02/18/17 (Beta Familia)] Multivit with Iron,Minerals 1 tab PO DAILY 02/18/17 [Cerovite Jr] Omeprazole [Prilosec] 20 mg PO DAILY 02/18/17 Oxycodone HCl/Acetaminophen 1 - 2 tab PO Q6H PRN PRN #20 tab 02/18/17 [Percocet 5/325] Ropinirole HCl [Requip] 1 mg PO QHS 02/18/17 traMADol [Ultram (G)] 50 mg PO Q6H PRN PRN 02/18/17 Surgical History: Surgical History (Last Reviewed 09/15/17 @ 15:07 by Maya Carrillo) Hx of tonsillectomy Z98.890, Z90.89 Psychiatric History: No pertinent psych hx Lives: Spouse/ Significant Other Smoking Status: Current every day smoker Alcohol: None Drugs: Marijuana Review of Systems Constitutional: Denies: Chills, Fever, Weight Change HEENT: Denies: Head Aches, Sinus Congestion, Sinus Drainage Cardiovascular: Denies: Chest Pain, Palpitations Respiratory: Denies: Cough, Shortness of breath at rest, Sputum production Gastrointestinal: Denies: Abdominal Pain, Nausea, Vomiting Genitourinary: Denies: Dysuria Musculoskeletal: Denies: Joint Pain, Joint Tenderness Skin: Denies: Rash, Wounds Neurological: Reports: - - Vertigo. Denies: Focal weakness, Numbness, Tingling Psychiatric: Denies: Anxiety, Depression, Homicidal Ideations, Suicidal Ideations Hematologic/ Lymphatic: Denies: Easy Bruising, Easy Bleeding VTE Information - Inpt Only VTE Present on Admission: No VTE Mechan Device Prophylaxis: SCD's VTE Pharm Prophylaxis ordered?: Yes - Physical Exam General: Alert, Oriented x3, Cooperative HEENT: Atraumatic, PERRLA, EOMI, Normocephalic Neck: Supple, No JVD, Negative Carotid Bruits Lungs: Clear to auscultation, Normal air movement Cardiovascular: Regular rate, No murmurs Abdomen: Bowel Sounds Present, Soft, Non Tender Extremities: No edema, Capillary Refill Less than 3 Seconds Skin: No rashes, No breakdown Musculoskeletal: No Tenderness to Palpation of Joints or Extremities Neurological: Cranial nerves II-XII grossly intact Psych/Mental Status: Normal Affect, Appropriate Vital Signs Temp Pulse Resp BP Pulse Ox 98.1 F 64 18 175/92 H 95 10/16/17 16:22 10/16/17 19:45 10/16/17 19:45 10/16/17 19:45 10/16/17 19:45 Assessment/Plan All Active Problems (Last Reviewed 09/15/17 @ 15:06 by Maya Carrillo) Lung nodule (Acute) 52 year old male w/ h/o chronic pain syndrome, HTN, 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 1) Vertigo: Possible benign paroxysmal positional vertigo. CT brain negative. EKG and chest xray unremarkable. Utox positive for opiate, benzo, and cannabinoid. Will get ECHO, carotid and MRI to complete stroke workup. Monitor. 2) HTN: Resume home meds. 3) Metastatic castrate resistant prostate cancer s/p radical prostatectomy, LHRH agonist, and xtandi: Resume lupron. Monitor 4) Prophylaxis: SCD / Heparin.
[2017-10-16 21:53] LABS: Thyroid Stim Hormone (TSH) 4.44 uIU/mL (0.358-3.74)
[2017-10-16] MEDS: 0.9% Normal Saline 1,000 ML 150 ML IV (22:20)
[2017-10-16 22:21] LABS: Amphetamine Urine VISTA NEGATIVE (<1000 ng/mL); Barbiturate Urine VISTA NEGATIVE (< 200 ng/mL); Benzodiazepine Urine VISTA POSITIVE (< 200 ng/mL); Cocaine Urine VISTA NEGATIVE (< 300 ng/mL); Ecstacy Urine VISTA NEGATIVE (< 500 ng/mL); Methadone Urine VISTA NEGATIVE (< 300 ng/mL); PCP Urine VISTA NEGATIVE (< 25 ng/mL); THC Urine VISTA POSITIVE (< 50 ng/mL); Vista UDS pH Range 5
[2017-10-16] MEDS: Heparin Injection (Vial) 5,000 UNIT/ML VIAL 5000 UNIT SC (23:05)
[2017-10-16] MEDS: Atorvastatin Calcium 80 MG Tablet PO (23:05)
[2017-10-16] MEDS: Pramipexole Di-HCl 0.5 MG Tablet PO (23:05)
[2017-10-16] MEDS: Metoprolol Tartrate 50 MG Tablet PO (23:05)
[2017-10-16] MEDS: ALPRAZolam 0.5 MG Tablet PO (23:06)
[2017-10-16] MEDS: Morphine 2 MG/ML Syringe IV (23:06)
[2017-10-17] VITALS (9 sets, daily range): BP systolic 141–171; BP diastolic 80–98; PULSE 49–67; RESP 18; TEMP 36.7–36.8; O2SAT 95–99; BMI 25.7
[2017-10-17 03:17] LABS: International Normalized Ratio 1.1; Prothrombin Time (Protime)PT. 13.7 SECONDS (11.7-14.9)
[2017-10-17 03:27] LABS: Anion Gap 9 (5-15); BUN 9 mg/dL (7-18); BUN/Creat Ratio 11.9 RATIO (10-20); Calcium,Total 8.4 mg/dL (8.5-10.1); Chloride 107 mmol/L (98-107); Cholesterol 161 mg/dL (200); Creatinine, Serum 0.76 mg/dL (0.70-1.30); EST Glomerular Filtration Rate 115 mL/min (>60); Est Glom Filt Rate - Afr Amer 139 mL/min (>60); Estimated Creatinine Clearance 101.44 ml/min; Glucose 135 mg/dL (74-106); High Density Lipoprotein 27 mg/dL; Potassium 3.6 mmol/L (3.5-5.1); Sodium Level 141 mmol/L (136-145); Triglycerides 309 mg/dL; Very Low Density Lipoprotein 62 mg/dL (5-40)
[2017-10-17] MEDS: 0.9% Normal Saline 1,000 ML 150 ML IV (05:00)
[2017-10-17] MEDS: Heparin Injection (Vial) 5,000 UNIT/ML VIAL 5000 UNIT SC (05:01)
[2017-10-17 08:08] LABS: T4 Free Direct 1.25 ng/dL (0.76-1.46)
[2017-10-17] MEDS: Multivitamins,Ther W-Minerals Tablet 1 TABLET PO (08:23)
[2017-10-17] MEDS: Aspirin 81 MG TAB.CHEW PO (08:23)
[2017-10-17] MEDS: Meclizine HCl 25 MG Tablet PO (10:51)
[2017-10-17] MEDS: 0.9% NaCl Peripheral Flush Adult/Peds IV (10:52)
[2017-10-17] MEDS: Metoprolol Tartrate 50 MG Tablet PO (10:52)
[2017-10-17] MEDS: Pantoprazole Sodium 20 MG Tablet PO (10:52)
[2017-10-17] MEDS: oxyCODONE 5 MG Tablet PO (11:03)
--- NOTE | 2017-10-17 11:36 | PCM.DC ---
You will use the following diet at home:: Cardiac Discharge Activity: - - Fall precaution. Use caution with ambulation if dizziness occurs. Call your doctor if you observe: Numbness or Tingling, Dizziness, Fainting spells, Chest pain, Increased palpitations (irregular heartbeat) Allergies/Adverse Reactions: Allergies Iodinated Contrast- Oral and IV Dye [CONTRASTS] Allergy (Severe, Verified 10/16/17 16:22) Anaphylaxis shellfish derived Allergy (Severe, Verified 10/16/17 16:22) Anaphylaxis Medications to take at Discharge ALPRAZolam [Xanax] 0.5 mg PO BID PRN PRN 02/18/17 Ergocalciferol [Vitamin D] 50,000 unit PO Q7D 02/18/17 Ibuprofen [Motrin] 600 mg PO Q6H PRN PRN 02/18/17 Leuprolide Acetate [Lupron Depot] 30 mg IM QMONTH MDD 6 month 02/18/17 Metoprolol Tartrate [Lopressor (beta kiana)] 50 mg PO BID 02/18/17 Multivit with Iron,Minerals [Cerovite Jr] 1 tab PO DAILY 02/18/17 Omeprazole [Prilosec] 20 mg PO DAILY 02/18/17 Oxycodone HCl/Acetaminophen [Percocet 5-325] 1 - 2 tab PO Q6H PRN PRN #20 tab 02/18/17 Ropinirole HCl [Requip] 1 mg PO QHS 02/18/17 traMADol [Ultram] 50 mg PO Q6H PRN PRN 02/18/17 Atorvastatin Calcium [Lipitor] 80 mg PO QHS #30 tab 10/17/17 Meclizine HCl [Antivert] 25 mg PO TID #21 tab 10/17/17 The following prescriptions were given: Atorvastatin Calcium [Lipitor] 80 mg PO QHS #30 tab Meclizine HCl [Antivert] 25 mg PO TID #21 tab Primary Care Physician: Chau Flaherty DO [Primary Care Provider] - Please follow up with your Primary Care Physician in: 1 Week Proposed Discharge Date: 10/17/17
--- NOTE | 2017-10-17 11:38 | PCM.DC.SUM ---
Discharge Date and Diagnosis Date of Admission: 10/16/17 Date of Discharge: 10/17/17 - Primary Discharge Diagnosis !. Acute vertigo, suspected BPPV 2. Hyperlipidemia - Secondary Discharge Diagnosis Chronic Problems (Last Reviewed 09/15/17 @ 15:06 by Maya Carrillo) CAD (coronary artery disease) (Chronic) Anemia (Chronic) Bone metastases (Chronic) Osteoporosis (Chronic) Diverticular disease (Chronic) Prostate cancer (Chronic) Iron deficiency anemia (Chronic) CVD (cerebrovascular disease) (Chronic) HTN (hypertension) (Chronic) Hospital Course and Treatment Imaging Results: Diagnostic Data Brain CT 10/16/17 16:53 IMPRESSION: Normal unenhanced CT scan of the brain. Electronically Signed: Matheus Duque MD at 19:03 EDT , Service support , Chest X-Ray 10/16/17 16:53 IMPRESSION: No acute cardiopulmonary process. Electronically Signed: Meme German MD at 17:18 EDT Tel , Service support , Brain MRI 10/16/17 20:53 IMPRESSION: 1. Involutional changes of the brain, as described above. 2. No MR evidence for acute infarct. Electronically Signed: Susana Buck MD at 10:57 EDT , Service support , Operations: None Procedures: None Summary of Care Provided: The patient is a 52 year old M admitted 10/16/2017 due to vertigo. 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 CT of brain on admission negative. EKG and chest x-ray unremarkable. Urine tox screen positive for opiate, benzo, cannabinoids. Acute CVA ruled out. MRI of brain shows no evidence of acute infarct. Dizziness worsened by movement. Patient is stable with ambulation and stable for discharge home on meclizine 25 mg 3 times daily for vertigo. If symptoms persist, recommend follow-up with ENT, DR Olivares for further evaluation/treatment. Follow up with PCP in 1 week. Patient was placed on atorvastatin 80 mg nightly for elevated lipid panel. Recommend further follow-up as outpatient. Patient seen exam prior to discharge. Alert, oriented, no acute distress. Lungs clear. Heart rate regular rate and rhythm. Abdomen soft, nontender. Neuro grossly intact. Skin intact. Vital signs stable. This patient was seen by JULIO C Hatfield under the supervision of Dr. Moore. Discharge Diet: Low fat/ Low Cholesterol Discharge Activity: - - Fall precaution. Use caution with ambulation if dizziness occurs. Call your doctor if you observe: Numbness or Tingling, Dizziness, Fainting spells, Chest pain, Increased palpitations (irregular heartbeat) Home Medications: Medications to take at Discharge ALPRAZolam [Xanax] 0.5 mg PO BID PRN PRN 02/18/17 Ergocalciferol [Vitamin D] 50,000 unit PO Q7D 02/18/17 Ibuprofen [Motrin] 600 mg PO Q6H PRN PRN 02/18/17 Leuprolide Acetate [Lupron Depot] 30 mg IM QMONTH MDD 6 month 02/18/17 Metoprolol Tartrate [Lopressor (beta kiana)] 50 mg PO BID 02/18/17 Multivit with Iron,Minerals [Cerovite Jr] 1 tab PO DAILY 02/18/17 Omeprazole [Prilosec] 20 mg PO DAILY 02/18/17 Oxycodone HCl/Acetaminophen [Percocet 5-325] 1 - 2 tab PO Q6H PRN PRN #20 tab 02/18/17 Ropinirole HCl [Requip] 1 mg PO QHS 02/18/17 traMADol [Ultram] 50 mg PO Q6H PRN PRN 02/18/17 Atorvastatin Calcium [Lipitor] 80 mg PO QHS #30 tab 10/17/17 Meclizine HCl [Antivert] 25 mg PO TID #21 tab 10/17/17 Following Prescrptions Were Given to Patient: Atorvastatin Calcium [Lipitor] 80 mg PO QHS #30 tab Meclizine HCl [Antivert] 25 mg PO TID #21 tab Primary Care Physician: Chau Flaherty DO [Primary Care Provider] - Please follow up with your Primary Care Physician in: 1 Week Additional Instructions: May follow up with ENT if vertigo symptoms persist for vestibular therapy. Dr. Olivares is local ENT, he can be reached at [phone]. Disposition: Home Minutes spent on discharge:: 35 Patient Condition:: Stable Medical Necessity - Tobacco Use Smoking Status: Current every day smoker Meaningful Use Info Meaningful Use Diagnoses (Choose all that apply): None applicable
--- NOTE | 2017-10-17 11:53 | DS.PCM_ITS ---
Discharge Date and Diagnosis Date of Admission: 10/16/17 Date of Discharge: 10/17/17 - Primary Discharge Diagnosis !. Acute vertigo, suspected BPPV 2. Hyperlipidemia - Secondary Discharge Diagnosis Chronic Problems (Last Reviewed 09/15/17 @ 15:06 by Maya Carrillo) CAD (coronary artery disease) (Chronic) Anemia (Chronic) Bone metastases (Chronic) Osteoporosis (Chronic) Diverticular disease (Chronic) Prostate cancer (Chronic) Iron deficiency anemia (Chronic) CVD (cerebrovascular disease) (Chronic) HTN (hypertension) (Chronic) Hospital Course and Treatment Imaging Results: Diagnostic Data Brain CT 10/16/17 16:53 IMPRESSION: Normal unenhanced CT scan of the brain. Electronically Signed: Matheus Duque MD at 19:03 EDT , Service support , Chest X-Ray 10/16/17 16:53 IMPRESSION: No acute cardiopulmonary process. Electronically Signed: Meme German MD at 17:18 EDT Tel , Service support , Brain MRI 10/16/17 20:53 IMPRESSION: 1. Involutional changes of the brain, as described above. 2. No MR evidence for acute infarct. Electronically Signed: Susana Buck MD at 10:57 EDT , Service support , Operations: None Procedures: None Summary of Care Provided: The patient is a 52 year old M admitted 10/16/2017 due to vertigo. 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 CT of brain on admission negative. EKG and chest x -ray unremarkable. Urine tox screen positive for opiate, benzo, cannabinoids. Acute CVA ruled out. MRI of brain shows no evidence of acute infarct. Dizziness worsened by movement. Patient is stable with ambulation and stable for discharge home on meclizine 25 mg 3 times daily for vertigo. If symptoms persist, recommend follow-up with ENT, DR Olivares for further evaluation/ treatment. Follow up with PCP in 1 week. Patient was placed on atorvastatin 80 mg nightly for elevated lipid panel. Recommend further follow-up as outpatient. Patient seen exam prior to discharge. Alert, oriented, no acute distress. Lungs clear. Heart rate regular rate and rhythm. Abdomen soft, nontender. Neuro grossly intact. Skin intact. Vital signs stable. This patient was seen by JULIO C Hatfield under the supervision of Dr. Moore. Discharge Diet: Low fat/ Low Cholesterol Discharge Activity: - - Fall precaution. Use caution with ambulation if dizziness occurs. Call your doctor if you observe: Numbness or Tingling, Dizziness, Fainting spells, Chest pain, Increased palpitations (irregular heartbeat) Home Medications: Medications to take at Discharge ALPRAZolam [Xanax] 0.5 mg PO BID PRN PRN 02/18/17 Ergocalciferol [Vitamin D] 50,000 unit PO Q7D 02/18/17 Ibuprofen [Motrin] 600 mg PO Q6H PRN PRN 02/18/17 Leuprolide Acetate [Lupron Depot] 30 mg IM QMONTH MDD 6 month 02/18/17 Metoprolol Tartrate [Lopressor (beta kiana)] 50 mg PO BID 02/18/17 Multivit with Iron,Minerals [Cerovite Jr] 1 tab PO DAILY 02/18/17 Omeprazole [Prilosec] 20 mg PO DAILY 02/18/17 Oxycodone HCl/Acetaminophen [Percocet 5-325] 1 - 2 tab PO Q6H PRN PRN #20 tab Ropinirole HCl [Requip] 1 mg PO QHS 02/18/17 traMADol [Ultram] 50 mg PO Q6H PRN PRN 02/18/17 Atorvastatin Calcium [Lipitor] 80 mg PO QHS #30 tab 10/17/17 Meclizine HCl [Antivert] 25 mg PO TID #21 tab 10/17/17 Following Prescrptions Were Given to Patient: Atorvastatin Calcium [Lipitor] 80 mg PO QHS #30 tab Meclizine HCl [Antivert] 25 mg PO TID #21 tab Primary Care Physician: Chau Flaherty DO [Primary Care Provider] - Please follow up with your Primary Care Physician in: 1 Week Additional Instructions: May follow up with ENT if vertigo symptoms persist for vestibular therapy. Dr. Olivares is local ENT, he can be reached at [phone]. Disposition: Home Minutes spent on discharge:: 35 Patient Condition:: Stable Medical Necessity - Tobacco Use Smoking Status: Current every day smoker Meaningful Use Info Meaningful Use Diagnoses (Choose all that apply): None applicable
[2017-10-17 12:27] LABS: Phosphorus 4.2 mg/dL (2.5-4.9)
--- NOTE | 2017-10-17 13:06 | NURSING ---
ROBERTO for NS IV bag 10/17/17 at 1240.
== END 2017-10-17 11:38 | disposition home or self-care (01) ==
LOC: ED 17:24 → PCU 20:29
PROVIDERS: Admitting Provider Internal Medicine; Emergency Provider Emergency Medicine; Family Provider Family Medicine; PCP Family Medicine; Visit Provider Family Medicine
DX: R42 Dizziness and giddiness (principal); D50.9 Iron deficiency anemia, unspecified; I10 Essential (primary) hypertension; E78.5 Hyperlipidemia, unspecified; K21.9 Gastro-esophageal reflux disease without esophagitis; F41.9 Anxiety disorder, unspecified; Z79.899 Other long term (current) drug therapy; Z85.46 Personal history of malignant neoplasm of prostate; Z85.830 Personal history of malignant neoplasm of bone; Z85.47 Personal history of malignant neoplasm of testis; I25.10 Atherosclerotic heart disease of native coronary artery without angina pectoris; R91.1 Solitary pulmonary nodule; G89.4 Chronic pain syndrome; F17.200 Nicotine dependence, unspecified, uncomplicated
CPT/HCPCS: 36415; 70450; 70551; 71045; 80048; 80061; 80307; 83735; 84100; 84439; 84443; 84484; 85025; 85610; 93005; 96361; 96372; 96374; 96376; 97162; 97166; 99218; 99284; J7030; A4216; G0378

== ENCOUNTER → 2017-11-04 13:57 | Outpatient (CLI) | payer MEDICARE, MEDICAID, SELFPAY ==
--- NOTE | 2017-11-04 14:00 | CT_ITS ---
STUDY: CT ABDOMEN AND PELVIS WITHOUT CONTRAST REASON FOR EXAM: Male, 52 years old. PROSTATE CA FOLLOW-UP,BONE METS, TESTICULAR CA WITH CHEMO AND RAD TX IN 1985, NAUSEA, WEAKNESS RADIATION DOSAGE (If Supplied By Facility): CTDIvol = ( 7.93 ) mGy, DLP = ( 364.34 ) mGycm TECHNIQUE: Transaxial images were obtained from the dome of the diaphragm to the symphysis pubis without oral contrast, and without intravenous contrast. Sagittal and coronal images were reconstructed. Individualized dose optimization techniques were used for this CT. COMPARISON: 06/13/2017. FINDINGS: The visualized lung bases are unremarkable. The visualized portions of the heart are within normal limits. Normal liver. Normal gallbladder and extrahepatic biliary system. Normal spleen. Normal pancreas. Normal bilateral adrenal glands. Bilateral kidney stones are noted the largest is in the left kidney measures 12 mm. There is no hydronephrosis. There is scarring in the lower part of the left kidney. Normal visualized stomach. Normal small intestine. There are multiple colonic diverticula consistent with diverticulosis. The appendix is visualized and appears normal. Normal abdominal aorta. Normal inferior vena cava. Normal retroperitoneum. Normal urinary bladder. Normal abdominal wall. Multiple osteosclerotic metastatic lesions are seen in lumbar spine and the pelvis have increased in size and number since the study from June 13, 2017. The largest lesion is in the vertebral body of T12 measures 3 cm in diameter. There is no evidence of pathologic fractures. CT/Abdomen/Pelvis without Cont IMPRESSION: Disease progression. Increased size and number of metastatic lesions in the lumbar spine and pelvic bones. There is no pathologic fracture. Electronically Signed: Debra Barragan MD at 8:12 EDT Tel , Service support ,
== END ==
DX: C61 Malignant neoplasm of prostate (principal); C79.51 Secondary malignant neoplasm of bone
CPT/HCPCS: 74176

== ENCOUNTER → 2017-11-15 16:36 | Outpatient (CLI) | payer MEDICARE, MEDICAID, SELFPAY ==
[2017-11-15 18:34] LABS: Absolute Lymphocyte Count 2.19 X10^3/ul (0.83-4.51); Absolute Neutrophil Count 5.5 X10^3/uL (2.0-7.7); Basophil# 0.02 X10^3/uL; Basophil% 0.2 % (0-1); Eosinophil# 0.18 X10^3/uL; Eosinophils% 2.1 % (0-5); Hematocrit 39.4 % (40-54); Hemoglobin 13.3 g/dl (13.0-16.5); Lymphocyte # 2.19 X10^3/ul (4.0); Lymphocyte % 25.1 % (19-41); Mean Corp Hgb Conc 33.8 g/gl (32-36); Mean Corpuscular Hgb 30.5 pg (27.0-32.0); Mean Corpuscular Volume 90.4 fL (80-94); Mean Platelet Vol. 10.4 fl (6.2-12.0); Monocyte# 0.79 X10^3/uL; Neutrophil # 5.49 X10^3/uL (2.7-7.7); Neutrophil % 62.9 % (47-70); Platelet Count 258 K/mm3 (150-450); RBC Distribution Width CV 13.4 % (11.6-14.6); RBC Distribution Width SD 43.4 fl (35.1-43.9); Red Blood Count 4.36 M/mm3 (4.6-6.2); White Blood Count 8.7 K/mm3 (4.4-11.0)
[2017-11-15 18:42] LABS: POSITIVE COUNT NO; POSITIVE DIFFERENTIAL NO; POSITIVE MORPHOLOGY NO
[2017-11-15 19:02] LABS: ALB/GLOB Ratio 0.9 RATIO (0.9-2.4); AST(SGOT) 65 U/L (15-37); Alanine Aminotransfer ALT/SGPT 21 U/L (16-61); Albumin, Serum 3.3 g/dL (3.2-5.0); Alkaline Phosphatase 355 U/L (45-117); Anion Gap 10 (5-15); BUN 11 mg/dL (7-18); BUN/Creat Ratio 12.3 RATIO (10-20); Calcium,Total 8.9 mg/dL (8.5-10.1); Chloride 102 mmol/L (98-107); Creatinine, Serum 0.89 mg/dL (0.70-1.30); EST Glomerular Filtration Rate 95 mL/min (>60); Est Glom Filt Rate - Afr Amer 115 mL/min (>60); Ferritin 95 ng/mL (26-388); Globulin 3.8 g/dL (2.2-4.2); Glucose 97 mg/dL (74-106); Iron 56 ug/dL (65-175); Iron Binding Capacity,Total 315 ug/dL (250-450); PERCENT IRON SATURATION 17.8 % (15.0-55.0); Potassium 3.7 mmol/L (3.5-5.1); Protein, Total 7.1 g/dL (6.4-8.2); Sodium Level 139 mmol/L (136-145)
[2017-11-16 01:25] LABS: Xtra Tube EP Lab EXTRA TUBE
== END ==
PROVIDERS: Family Provider Family Medicine; PCP Family Medicine; Visit Provider Internal Medicine Hematology & Oncology
DX: C61 Malignant neoplasm of prostate (principal); C62.90 Malignant neoplasm of unspecified testis, unspecified whether descended or undescended; D50.9 Iron deficiency anemia, unspecified; D64.9 Anemia, unspecified
CPT/HCPCS: 80053; 82728; 83540; 83550; 84153; 85025

== ENCOUNTER 2017-12-29 12:57 | Emergency (ER) | payer MEDICARE, MEDICAID, SELFPAY ==
[2017-12-29 12:58] VITALS: BP 117/81; PULSE 56; RESP 16; TEMP 36.7; O2SAT 97; BMI 23.5
[2017-12-29] MEDS: Ketorolac 15 MG/ML Vial IV (14:05)
[2017-12-29] MEDS: 0.9% Normal Saline 1,000 ML 1000 ML IV (14:06)
[2017-12-29] MEDS: HYDROmorphone 1 MG/ML Syringe IV (14:06)
[2017-12-29] MEDS: Ondansetron 4 MG/2 ML Vial IV (14:06)
[2017-12-29 14:26] LABS: ALB/GLOB Ratio 0.9 RATIO (0.9-2.4); AST(SGOT) 96 U/L (15-37); Alanine Aminotransfer ALT/SGPT 14 U/L (16-61); Albumin, Serum 3.3 g/dL (3.2-5.0); Alkaline Phosphatase 621 U/L (45-117); Anion Gap 10 (5-15); BUN 9 mg/dL (7-18); BUN/Creat Ratio 11.7 RATIO (10-20); Calcium,Total 8.9 mg/dL (8.5-10.1); Chloride 104 mmol/L (98-107); Creatinine, Serum 0.77 mg/dL (0.70-1.30); EST Glomerular Filtration Rate 113 mL/min (>60); Est Glom Filt Rate - Afr Amer 136 mL/min (>60); Estimated Creatinine Clearance 103.73 ml/min; Globulin 3.7 g/dL (2.2-4.2); Glucose 113 mg/dL (74-106); Potassium 3.6 mmol/L (3.5-5.1); Sodium Level 138 mmol/L (136-145)
--- NOTE | 2017-12-29 14:46 | ED.VISSUMM ---
- ER Visit Summary Date of Service: 12/29/17 Chief Complaint: Left-sided pelvic bilateral groin/hip pain History of Present Illness: The patient is a 52 M diagnosed 4 years ago of prostate cancer has metastatic disease to osseous structures. He states he had severe pain today with movement of his left lower extremity. He has had pain intermittently past month. He denies any type of trauma. He denies paresthesia, anesthesia motor weakness. He is presently on oxycodone with minimal effect. He denies fever, chills or sweats. He does give a remote history of night sweats and weight loss. He does complain of weakness and fatigue. He denies any ocular, visual auditory symptoms. Denies any cardiac respiratory symptoms. He denies nausea, vomiting diarrhea, melena or maroon stool. He denies leg pain, swelling or discoloration. Physical Examination: Vital signs noted and heart rate is slightly low at 56. HEENT exam is remarkable pale conjunctival. Heart is regular without murmur, gallop or rub. S1 and S2 are normal. Lungs are clear to auscultation with good movement of air bilaterally. Abdomen is soft nontender. He does have pain palpation of the pelvis and lower lumbar sacral region. Logrolling causes discomfort over the greater trochanteric region. There is no shortening of the extremities or external rotation. DP PT pulses are palpable. He does appear slightly pale. Test Results: Three-view x-ray left hip reveals metastatic disease in his pelvis as well as proximal right and left femur. No fracture was noted. CMP was obtained to evaluate for hypercalcemia, liver enzymes. Alk phos is 621. Calcium is normal. ALT and AST are normal. Emergency Department Course and Treatment: IV was established he was treated with IV Toradol and Dilaudid. He reports significant improvement. Treatment Plan: Outpatient follow-up with Dr. Wayne Rawls, prescription for Dilaudid and keep appointment with pain management Disposition: Discharged to home Impression: Pelvis and hip pain secondary to metastatic prostate cancer This note was generated with artaculous dictation software. It may contain incorrect words, spelling, and punctuation that were not noted in review of the chart prior to signing ED Disposition - Plan for ED Patient: Disposition: Home or Assisted Living Chief Complaint: Other, Pain/Inj Instructions: Managing Chronic Pain: Medications Prescriptions: HYDROmorphone tablet [Dilaudid] 2 mg PO Q4H PRN PRN #120 tablet PRN Reason: Bone pain Referrals: Chau Flaherty DO [Primary Care Provider] - Wayne Rawls [NON-STAFF] - 1 Week
[2017-12-29 15:05] VITALS: BP 155/78; PULSE 78; RESP 16; O2SAT 97
== END 2017-12-29 15:18 | disposition home or self-care (01) ==
PROVIDERS: Emergency Provider Emergency Medicine; Family Provider Family Medicine; PCP Family Medicine
DX: R10.2 Pelvic and perineal pain (principal); M25.552 Pain in left hip; C61 Malignant neoplasm of prostate; C79.89 Secondary malignant neoplasm of other specified sites; C79.51 Secondary malignant neoplasm of bone; I10 Essential (primary) hypertension; Z79.899 Other long term (current) drug therapy; Z72.0 Tobacco use
CPT/HCPCS: 73502; 80053; 96374; 96375; 99284; J7030; A4216; J2405

== ENCOUNTER 2018-01-02 04:47 | Inpatient (IN) | payer MEDICARE, SELFPAY ==
[2018-01-02] VITALS (22 sets, daily range): BP systolic 123–174; BP diastolic 11–125; PULSE 93–116; RESP 16–27; TEMP 36.5–37.1; O2SAT 94–100; BMI 22.3; BMI 22.2
--- NOTE | 2018-01-02 05:07 | EKG12_ITS ---
Test Reason : CP Blood Pressure : / mmHG Vent. Rate : 095 BPM Atrial Rate : 095 BPM P-R Int : 148 ms QRS Dur : 092 ms QT Int : 378 ms P-R-T Axes : 063 -10 055 degrees QTc Int : 475 ms Normal sinus rhythm Possible Inferior infarct , age undetermined Abnormal ECG Confirmed by JAZMINE ODELL, CLARIBEL ([id number]), editor farm journal PETEY DIAZ ([id number]) on 01/04/2018 1:30:15 PM Referred By: NAVEEN Confirmed By:CLARIBEL LUCERO MD
[2018-01-02] MEDS: Aspirin 81 MG TAB.CHEW 324 MG PO (05:27)
[2018-01-02] MEDS: fentaNYL 100 MCG/2 ML Ampul 50 MCG IV ×2 (05:27→10:30)
[2018-01-02 05:37] LABS: Absolute Lymphocyte Count 1.97 X10^3/ul (0.83-4.51); Absolute Neutrophil Count 5.1 X10^3/uL (2.0-7.7); Basophil# 0.02 X10^3/uL; Basophil% 0.3 % (0-1); Eosinophil# 0.08 X10^3/uL; Hematocrit 37.8 % (40-54); Hemoglobin 12.2 g/dl (13.0-16.5); Lymphocyte # 1.97 X10^3/ul (4.0); Lymphocyte % 24.7 % (19-41); Mean Corp Hgb Conc 32.3 g/gl (32-36); Mean Platelet Vol. 9.8 fl (6.2-12.0); Monocyte# 0.64 X10^3/uL; Neutrophil # 5.11 X10^3/uL (2.7-7.7); Neutrophil % 64.1 % (47-70); Platelet Count 147 K/mm3 (150-450); RBC Distribution Width CV 15.4 % (11.6-14.6); RBC Distribution Width SD 49.4 fl (35.1-43.9)
[2018-01-02 05:38] LABS: Differential Indicated SCAN CRITERIA MET; POSITIVE COUNT NO; POSITIVE DIFFERENTIAL NO; POSITIVE MORPHOLOGY YES
[2018-01-02 06:09] LABS: D-Dimer Quantitative (DVT/PE) 4.47 FEU/ug/m (0.27-0.49)
[2018-01-02 06:10] LABS: Anion Gap 12 (5-15); BUN 9 mg/dL (7-18); BUN/Creat Ratio 13.6 RATIO (10-20); Calcium,Total 8.9 mg/dL (8.5-10.1); Chloride 105 mmol/L (98-107); Creatinine, Serum 0.66 mg/dL (0.70-1.30); EST Glomerular Filtration Rate 134 mL/min (>60); Est Glom Filt Rate - Afr Amer 162 mL/min (>60); Estimated Creatinine Clearance 118.27 ml/min; Glucose 161 mg/dL (74-106); Sodium Level 141 mmol/L (136-145)
--- NOTE | 2018-01-02 06:20 | NURSING ---
critical d-dimer 4.47 received from lab, Dr Ferro notified.
[2018-01-02 06:31] LABS: Differential Comment SCANNED
[2018-01-02] MEDS: MethylPREDNISolone 125 MG/2 ML Vial IV (07:15)
[2018-01-02] MEDS: DiphenhydrAMINE 50 MG/ML Syringe 25 MG IV (07:15)
--- NOTE | 2018-01-02 07:48 | ED.VISSUMM ---
- ER Visit Summary Date of Service: 01/02/18 Chief Complaint: Chest pain History of Present Illness: The patient is a 52 M presenting with chest pain. Patient states this started 3 days ago. Pain initially was intermittent. He had pain throughout the day yesterday. He states he was in the emergency department on December 29 for diffuse pain. He was started on Dilaudid at that time for bone metastases secondary to prostate cancer. He states since starting the Dilaudid he has had chest pain. He states he was told this was a side effect but the pain has been unbearable. He saw his primary care physician yesterday who started him on mirtazapine. He is unable to tolerate the pain at home. Physical Examination: Vitals are stable. Patient is afebrile. Alert no acute distress. HEENT exam is unremarkable. Neck is supple. Lungs are clear and equal bilaterally. Heart is regular rate and rhythm. Abdomen is soft nontender nondistended. Extremities are unremarkable. Skin is warm and dry. No focal neurologic deficit. Remainder of exam is unremarkable. Emergency Department Course and Treatment: Patient was given fentanyl IV. He was given aspirin. Chest x-ray shows no acute process. EKG is sinus rate of 95. CBC normal except for hemoglobin 12.2, platelet 147. Chemistries show potassium 3.0, glucose 161. Troponin is 0.477. D-dimer is 4.47. He has a previous contrast allergy, unable to obtain a VQ scan today. He was pretreated with Solu-Medrol and Benadryl IV for CTA chest. CTA is pending and will be checked out to the daytime physician. Disposition: pending CTA results Impression: Chest pain, metastatic prostate cancer This note was generated with [employer] dictation software. It may contain incorrect words, spelling, and punctuation that were not noted in review of the chart prior to signing ED Disposition - Plan for ED Patient: Chief Complaint: Chest Pain Referrals: Chau Flaherty DO [Primary Care Provider] -
--- NOTE | 2018-01-02 10:40 | PCM.HP.STD ---
Problem List (1) Acute non-ST elevation myocardial infarction (NSTEMI) Status: Acute (2) CAD (coronary artery disease) Status: Chronic Qualifiers: Coronary Disease-Associated Artery/Lesion type: unspecified vessel or lesion type [place] vs. transplanted heart: [place] heart Associated angina: with unstable angina Qualified Code(s): I25.110 - Atherosclerotic heart disease of [place] coronary artery with unstable angina pectoris (3) Anemia Status: Chronic Qualifiers: Anemia type: unspecified type Qualified Code(s): D64.9 - Anemia, unspecified (4) Bone metastases Status: Chronic (5) Osteoporosis Status: Chronic Qualifiers: Osteoporosis type: unspecified Presence of current pathological fracture: unspecified Qualified Code(s): M81.0 - Age-related osteoporosis without current pathological fracture (6) Testicular cancer Status: Chronic Qualifiers: Laterality: unspecified laterality Comment: left orchiectomy 1985 (7) Prostate cancer Status: Chronic (8) Iron deficiency anemia Status: Chronic (9) HTN (hypertension) Status: Chronic Qualifiers: Hypertension type: essential hypertension Qualified Code(s): I10 - Essential (primary) hypertension History of Present Illness Date of Admission: 01/02/18 Chief Complaint: Chest pain - 5 days The patient is a 52 year old M with past medical history of metastatic castrate resistant prostate cancer, history of CAD with reported MIs, patient cannot tell me who he follows up with cardiology, hypertension, GERD, anxiety/depression who comes in with complaints of chest pain ongoing since 5 days. Patient follows with [facility]. Seen in the ED on 12/29/2017 with complaints of left lower extremity pain, giving a prescription for Dilaudid and per patient he has since started having chest pain, that also involves his abdomen, does not radiate, not associated with diaphoresis or shortness of breath. He presented to the emergency room today because chest pain was not getting better. Patient is a poor historian and is difficult to get a lot out of him because he was also recently sedated with fentanyl in the emergency department at the time of exam. His vitals in the ED pressure 117/81, later became hypertensive, heart rate 56, SPO2 97% on room air, temperature 98.1. EKG shows normal sinus rhythm, no acute ST-T changes, old Q waves in inferior leads Admitting blood work shows a RBC count of 8.0, Hb 12.2, platelet 147. D-dimer was 4.47. BMP showed sodium 141, potassium 3.0, chloride 105, bicarbonate 24, anion gap 12, BUN 9, creatinine 0.66. Initial troponin was 0.477 Past Medical History Past Medical History (Chronic Problems): Chronic Problems (Last Reviewed 11/18/17 @ 14:33 by Maya Carrillo) CAD (coronary artery disease) (Chronic) Anemia (Chronic) Bone metastases (Chronic) Osteoporosis (Chronic) Diverticular disease (Chronic) Testicular cancer (Chronic) left orchiectomy 1985 Prostate cancer (Chronic) Iron deficiency anemia (Chronic) CVD (cerebrovascular disease) (Chronic) HTN (hypertension) (Chronic) Medical History: Medical History (Last Reviewed 01/02/18 @ 14:27 by Kimmy Chowdhury MD) Anxiety F41.9 Arthritis M19.90 Depression F32.9 Elevated PSA R97.20 Emphysema lung J43.9 GERD (gastroesophageal reflux disease) K21.9 Gastritis K29.70 Hemorrhoids K64.9 Hx of pneumothorax Z87.09 Inguinal hernia K40.90 Insomnia G47.00 Restless leg syndrome G25.81 Allergies Iodinated Contrast- Oral and IV Dye [CONTRASTS] Allergy (Severe, Verified 12/29/17 12:59) Anaphylaxis shellfish derived Allergy (Severe, Verified 12/29/17 12:59) Anaphylaxis Home Medications: Ambulatory Orders Medication Instructions Recorded ALPRAZolam [Xanax] 0.5 mg PO BID PRN PRN 02/18/17 Ergocalciferol [Vitamin D] 50,000 unit PO Q7D 02/18/17 Leuprolide Acetate [Lupron Depot] 30 mg IM UD MDD 6 month 02/18/17 Metoprolol Tartrate [Lopressor 50 mg PO BID 02/18/17 (beta kiana)] Multivit with Iron,Minerals 1 tab PO DAILY 02/18/17 [Cerovite Jr] Omeprazole [Prilosec] 20 mg PO DAILY 02/18/17 Ropinirole HCl [Requip] 1 mg PO QHS 02/18/17 HYDROmorphone tablet [Dilaudid] 2 mg PO Q4H PRN PRN #120 tablet 12/29/17 Metoclopramide [Reglan] 10 mg PO 4X/DAY PRN 01/02/18 Mirtazapine [Remeron] 15 mg PO QHS 01/02/18 Surgical History: Surgical History (Last Reviewed 11/18/17 @ 14:34 by Maya Carrillo) Hx of tonsillectomy Z98.890, Z90.89 Surgical History: herniorrhaphy, tonsillectomy, - - Status post prostatectomy, orchidectomy Psychiatric History: No pertinent psych hx Smoking Status: Current every day smoker Tobacco Use: Cigarettes Alcohol: None Drugs: Marijuana - *Family History Paternal Family History: Family History (Last Reviewed 11/18/17 @ 14:34 by Maya Carrillo) Father Diabetes Heart disease Hypertension Mother Lung cancer History Items: Diabetes, Heart Disease, Hypertension Maternal Family History: Family History (Last Reviewed 11/18/17 @ 14:34 by Maya Carrillo) Father Diabetes Heart disease Hypertension Mother Lung cancer History Items: Cancer - lung cancer Review of Systems Constitutional: Reports: Weakness. Denies: Anorexia, Chills, Fever, Weight Change Eyes: Denies: Blurred vision, Cataracts, Conjunctivae Inflammation, Double vision HEENT: Denies: Difficulty Hearing, Difficulty Swallowing, Head Aches, Hearing Changes, Sinus Congestion, Sinus Drainage Cardiovascular: Reports: Chest Pain, Chest Pressure, Chest Tightness, Light Headedness. Denies: Orthopnea, Palpitations, Paroxysmal Noc. Dyspnea Respiratory: Reports: Shortness of Breath, Shortness of breath at rest, Shortness of breath upon exertion. Denies: Cough, Hemoptysis, Sputum production Gastrointestinal: Denies: Abdominal Pain, Constipation, Hematemesis, Nausea, Vomiting Genitourinary: Denies: Dysuria Musculoskeletal: Denies: Joint Pain, Joint stiffness, Joint swelling, Joint Tenderness Skin: Denies: Pruritis, Rash, Wounds Neurological: Denies: Difficulty swallowing, Focal weakness, Numbness, Tingling Psychiatric: Denies: Anxiety, Depression, Homicidal Ideations, Suicidal Ideations Hematologic/ Lymphatic: Denies: Easy Bruising, Easy Bleeding VTE Information - Inpt Only VTE Present on Admission: No VTE Pharm Prophylaxis ordered?: Yes Patient Problems: Active and Suspected Problems (Last Reviewed 11/18/17 @ 14:33 by Maya Carrillo) Acute non-ST elevation myocardial infarction (NSTEMI) (Acute) - Physical Exam General: Alert, Oriented x3, Cooperative, - - in severe pain HEENT: Atraumatic, PERRLA, EOMI, Normocephalic Oral: Moist Mucosa Neck: Supple Lungs: Clear to auscultation, Normal air movement Cardiovascular: Regular rate, Regular Rhythm, Normal S1, Normal S2, No murmurs, Tachycardic Abdomen: Bowel Sounds Present, Soft, Non Tender, Non-Distended, No Hepato-splenomegaly Extremities: No edema Skin: No rashes, No breakdown Musculoskeletal: No Tenderness to Palpation of Joints or Extremities Lymphatic: No Cervical, Supraclavicular, or Inguinal Adenopathy Neurological: Cranial nerves II-XII grossly intact, Neuro grossly intact Psych/Mental Status: Normal Affect, Appropriate Vital Signs Temp Pulse Resp BP Pulse Ox 97.9 F 106 H 22 H 154/119 H 97 01/02/18 04:48 01/02/18 10:31 01/02/18 10:31 01/02/18 10:31 01/02/18 10:31 Oxygen Delivery Method Room Air Weight: 64.6 kg Body Mass Index (BMI) 22.3 Laboratory Tests Past 24 Hrs 01/02/18 01/02/18 01/02/18 05:05 05:05 05:05 WBC 8.0 RBC 4.20 L Hgb 12.2 L Hct 37.8 L MCV 90.0 MCH 29.0 MCHC 32.3 RDW 15.4 H RDW Differential 49.4 H Plt Count 147 L MPV 9.8 Immature Gran % (Auto) 1.900 H Neut % (Auto) 64.1 Lymph % (Auto) 24.7 [place] % (Auto) 8.0 Eos % (Auto) 1.0 Baso % (Auto) 0.3 Absolute Neuts (auto) 5.1 Absolute Lymphs (auto) 1.97 Total Counted Not Reportable Differential Comment SCANNED D-Dimer Quant (PE/DVT) 4.47 H* Sodium 141 Potassium 3.0 L Chloride 105 Carbon Dioxide 24.0 Anion Gap 12 BUN 9 Creatinine 0.66 L Estim Creat Clear Calc 118.27 Est GFR (MDRD) Af Amer 162 Est GFR (MDRD) Non-Af 134 BUN/Creatinine Ratio 13.6 Glucose 161 H Calcium 8.9 Troponin I 0.477 H Assessment/Plan All Active Problems (Last Reviewed 11/18/17 @ 14:33 by Maya Carrillo) Acute non-ST elevation myocardial infarction (NSTEMI) (Acute) Lung nodule (Resolved) 2 year old M with past medical history of metastatic castrate resistant prostate cancer, history of CAD with reported MIs, patient cannot tell me who he follows up with cardiology, hypertension, GERD, anxiety/depression who comes in with complaints of chest pain ongoing since 5 days. Patient follows with [facility]. 1. Acute NSTEMI (REJI score at least 3/4) in a patient with reported CAD, history of MIs, EKG shows Q waves in inferior leads, no acute ST changes, Initial troponin is 0.477, increase to 3.470, cardiology consulted, Elevated D-dimer, CTA negative for acute PE will start on aspirin, loaded with Plavix 300 mg p.o. ?1, continue Plavix 75 mg p.o. daily, start beta-kiana 12.5 mg p.o. twice daily, nitro as needed, morphine, Lovenox subcu twice daily, monitor on telemetry 2. Hypertension, initially controlled, uncontrolled secondary to pain, will control pain, and reassess, continue home medications 3. Hyperlipidemia, on statins 4. History of CAD, status post MO, unclear for the cardiac history, will get records from [facility] 5. Metastatic castrate resistant prostate cancer, testicular CA, status post orchiectomy, follows up with oncology in the outpatient 6. Hypokalemia, replace, recheck in a.m. 7. DVT Ppx- Lovenox SC therapeutic Code Visit Inpatient E&M: 30413 Init Hosp L3
--- NOTE | 2018-01-02 11:19 | EKG12_ITS ---
Test Reason : CHEST PAIN Blood Pressure : / mmHG Vent. Rate : 106 BPM Atrial Rate : 106 BPM P-R Int : 144 ms QRS Dur : 084 ms QT Int : 398 ms P-R-T Axes : 066 -36 072 degrees QTc Int : 528 ms Sinus tachycardia Left axis deviation Inferior infarct , age undetermined Confirmed by JAZMINE ODELL, CLARIBEL ([id number]), acquisitions editor PETEY DIAZ ([id number]) on 01/05/2018 1:58:47 PM Referred By: CAITLIN Confirmed By:CLARIBEL LUCERO MD
--- NOTE | 2018-01-02 11:51 | ECHOD_ITS ---
Reason For Study: chest pain Procedure This was a 2D Doppler, Color Flow transthoracic echocardiogram. Exam performed portable in ICU/CCU. Left Ventricle Moderate concentric left ventricular hypertrophy. Mildly dilated left ventricle. The estimated ejection fraction is 40 %. Stage 1 diastolic dysfunction. There are regional wall motion abnormalities as specified. Basal anteroseptal: Akinetic. Mid-Anterior : Akinetic. Anterior [place] : Akinetic. Inferior [place] : Akinetic. Right Ventricle Normal size and thickness. Normal systolic function. Atria The left atrium is mildly enlarged. Normal right atrium. Normal atrial septum. Mitral Valve The mitral valve is structurally normal. No prolapse or stenosis seen. Tricuspid Valve Normal tricuspid valve. Mild (1+) tricuspid valve insufficiency. Right ventricular systolic pressure estimated to be 41 mmHg. Mild pulmonary hypertension. Aortic Valve Normal aortic valve. Trisinus/trileaflet aortic valve. Pulmonic Valve Normal pulmonic valve. Great Vessels Normal aortic root. Normal arch. Normal inferior vena cava. Inferior vena cava collapse with sniff. Pericardium/Pleural No pericardial effusion. MMode/2D Measurements & Calculations LVIDd: 5.0 cm IVSd: 1.3 cm Ao root diam: 3.6 cm LVIDs: 3.2 cm LVPWd: 1.3 cm LA dimension: 3.4 cm RVDd: 3.6 cm FS: 34.9 % LAV(MOD-bp): 75.7 ml LA A4 area: 22.7 cm2 RA A4 area: 12.7 cm2 LAV(MOD-bp) Indexed: 43.5 ml/m2 LAV(MOD-sp2): 78.1 ml LAV(MOD-sp4): 76.1 ml Doppler Measurements & Calculations MV E max ming: 64.8 cm/sec Lat Peak E' Ming: 13.6 cm/sec Med Peak E' Ming: 7.6 cm/sec MV A max ming: 43.9 cm/sec E/E' lat: 4.8 E/E' med: 8.5 MV E/A: 1.5 Ao V2 max: 112.7 cm/sec LV V1 max: 97.7 cm/sec TR max ming: 288.4 cm/sec Ao max P.1 mmHg LV V1 max P.8 mmHg TR max P.4 mmHg Interpretation Summary Moderate concentric left ventricular hypertrophy. Mildly dilated left ventricle. The estimated ejection fraction is 40 %. Stage 1 diastolic dysfunction. There are regional wall motion abnormalities as specified. The left atrium is mildly enlarged. Mild (1+) tricuspid valve insufficiency. Right ventricular systolic pressure estimated to be 41 mmHg. Mild pulmonary hypertension. Compared to echo report dated 05/30/2012, LV function has gone from 65% to 40%. Ordering Physician: Kimmy Chowdhury Referring Physician: Care Physician, No Primary L AIRPLANE FLIGHT ATTENDANT Performed By: Christine Mcarthur, CICI, RVT
--- NOTE | 2018-01-02 13:23 | EKG12_ITS ---
Test Reason : CHEST PAIN Blood Pressure : / mmHG Vent. Rate : 107 BPM Atrial Rate : 107 BPM P-R Int : 146 ms QRS Dur : 084 ms QT Int : 392 ms P-R-T Axes : 072 -22 068 degrees QTc Int : 523 ms Sinus tachycardia Low voltage QRS Inferior infarct , age undetermined Abnormal ECG When compared with ECG of 02-JAN-2018 04:48, MANUAL COMPARISON REQUIRED, DATA IS UNCONFIRMED Confirmed by JAZMINE ODELL, CLARIBEL ([id number]), primer expeditor and drier PETEY DIAZ ([id number]) on 01/05/2018 1:59:04 PM Referred By: CAITLIN Confirmed By:CLARIBEL LUCERO MD
[2018-01-02] MEDS: Ondansetron 4 MG/2 ML Vial IV ×3 (13:38→21:59)
--- NOTE | 2018-01-02 14:43 | PCM.CONS.C ---
Problem List (1) Acute non-ST elevation myocardial infarction (NSTEMI) Status: Acute (2) CAD (coronary artery disease) Status: Chronic Qualifiers: Coronary Disease-Associated Artery/Lesion type: unspecified vessel or lesion type [place] vs. transplanted heart: [place] heart Associated angina: with unstable angina Qualified Code(s): I25.110 - Atherosclerotic heart disease of [place] coronary artery with unstable angina pectoris (3) HTN (hypertension) Status: Chronic Qualifiers: Hypertension type: essential hypertension Qualified Code(s): I10 - Essential (primary) hypertension Reason for Consult Date of Consultation: 01/02/18 Reason for Consultation: Chest pain, non-STEMI, tobacco abuse, hypertension History of Present Illness: The patient is a 52 year old M, with metastatic prostate cancer diagnosed several years ago, hypertension, unknown cholesterol, [id number] smoker, currently smoking, who apparently was diagnosed with acute coronary syndrome requiring emergent transportation to [facility] about 5 years ago and underwent a left heart catheterization. To the best of his knowledge he had no angioplasty or stenting, and was told he had a stress heart attack. He has not had a catheterization or a stress test since then. Patient was recently in [facility] ER on Wednesday of this past week with acute onset of left hip pain which she felt may have been a pathologic fracture. Apparently he did not have a fracture in his oxycodone was changed to Dilaudid. Ever since the change to Dilaudid he has had substernal chest pain culminating in severe chest pain this morning around 4:30 in the morning where he sought medical attention at [facility]. His EKG at that time demonstrated normal sinus rhythm with what appeared to be old inferior/posterior wall myocardial infarction, no acute changes were noted. His initial troponin was 0.47, and increased to 3.47. CTA of his chest was done and was negative for pulmonary embolism. D-dimer was positive. Patient was placed on aspirin, loaded with Plavix, placed on Lovenox, and initially a nitroglycerin drip was ordered for his severe hypertension however this apparently had given him a headache in the past, and he was changed to nitroglycerin paste. In addition he had some nausea but no vomiting and was given antiemetic therapy. The patient reports that he had an allergic reaction to IV contrast dye about 18 years ago, and was given premedication for his CTA this morning. He has had no untoward effects. Past Medical History Allergies/Adverse Reactions: Allergies Iodinated Contrast- Oral and IV Dye [CONTRASTS] Allergy (Severe, Verified 12/29/17 12:59) Anaphylaxis shellfish derived Allergy (Severe, Verified 12/29/17 12:59) Anaphylaxis Home Medications: Ambulatory Orders Medication Instructions Recorded ALPRAZolam [Xanax] 0.5 mg PO BID PRN PRN 02/18/17 Ergocalciferol [Vitamin D] 50,000 unit PO Q7D 02/18/17 Leuprolide Acetate [Lupron Depot] 30 mg IM UD MDD 6 month 02/18/17 Metoprolol Tartrate [Lopressor 50 mg PO BID 02/18/17 (beta kiana)] Multivit with Iron,Minerals 1 tab PO DAILY 02/18/17 [Cerovite Jr] Omeprazole [Prilosec] 20 mg PO DAILY 02/18/17 Ropinirole HCl [Requip] 1 mg PO QHS 02/18/17 HYDROmorphone tablet [Dilaudid] 2 mg PO Q4H PRN PRN #120 tablet 12/29/17 Metoclopramide [Reglan] 10 mg PO 4X/DAY PRN 01/02/18 Mirtazapine [Remeron] 15 mg PO QHS 01/02/18 Past Medical History (Chronic Problems): Chronic Problems (Last Reviewed 01/02/18 @ 14:27 by Kimmy Chowdhury MD) CAD (coronary artery disease) (Chronic) Anemia (Chronic) Bone metastases (Chronic) Osteoporosis (Chronic) Diverticular disease (Chronic) Testicular cancer (Chronic) left orchiectomy 1985 Prostate cancer (Chronic) Iron deficiency anemia (Chronic) CVD (cerebrovascular disease) (Chronic) HTN (hypertension) (Chronic) Surgical History: herniorrhaphy, tonsillectomy, - - Status post prostatectomy, orchidectomy Psychiatric History: No pertinent psych hx - *Family History Paternal Family History: Family History (Last Reviewed 11/18/17 @ 14:34 by Maya Carrillo) Father Diabetes Heart disease Hypertension Mother Lung cancer History Items: Diabetes, Heart Disease, Hypertension Maternal Family History: Family History (Last Reviewed 11/18/17 @ 14:34 by Maya Carrillo) Father Diabetes Heart disease Hypertension Mother Lung cancer History Items: Cancer - lung cancer Smoking Status: Current every day smoker Tobacco Use: Cigarettes Alcohol: None Drugs: Marijuana Review of Systems - Review of Systems General: Denies: Fever, Night Sweats, Fatigue Cardiovascular: Reports: Chest Discomfort, Chest Discomfort at Rest. Denies: Shortness of Breath, Orthopnea, PND, Peripheral Edema, Palpitations, Lightheadedness, Dizziness, Near Syncope, Syncope Respiratory: Denies: Cough, Sputum Production, Hemoptysis Gastrointestinal: Denies: Hematemesis, Hematochezia, Melena Genitourinary: Denies: Dysuria, Hematuria Skin: Denies: Rash Subjectve: Patient laying in bed, no acute distress. Objective: Vital Signs Temp Pulse Resp BP Pulse Ox 97.9 F 112 H 22 H 151/100 H 99 01/02/18 04:48 01/02/18 13:42 01/02/18 10:31 01/02/18 13:42 01/02/18 12:15 Oxygen Delivery Method Room Air Weight: 142 lb Body Mass Index (BMI) 22.2 Intake and Output for Last 24 Hours 12/31/17 01/01/18 01/02/18 23:59 23:59 23:59 Intake Total 0 / 0 Output Total 0 / 0 Balance 0 / 0 General: Awake, Alert, Oriented x 3 HEENT: PERRL, EOMI, Sclera Non Icteric Neck: Supple, Good ROM, No Lymph Node Enlargement Lungs: Clear to auscultation Cardiovascular: Regular Rhythm, Normal S1, Normal S2, No Murmurs, No Rubs, No Gallops Vascular: No Carotid Bruits, Normal Femoral Pulses, Normal Radial Pulses, Normal Dorsalis Pedal Pulse, Normal Posterior Tibial Pulses Abdomen: Bowel Sounds Present, Soft, Non Tender, No HSM, No Organomegaly Extremities: No Cyanosis, No Clubbing, No edema Neurological: No Focal Motor or Sensory Deficit 01/02/18 11:45: Troponin I 3.470 H* Rhythm: EKG: As above ECHO: Pending Stress Test: Cardiac Cath: Pending PCI: CT Surgery: Holter monitor: EPS: PPM: CXR: Chest CT Scan: Assessment/Plan 1. Non-STEMI: The patient presents with acute onset chest pain possibly exacerbated by switching him from oxycodone to Dilaudid, with associated EKG findings of possible old inferior/posterior wall myocardial infarction of an unknown age. In addition his first troponin was 0.47 and then increase to 3.47 with ongoing intermittent chest pain. I recommend continuing baby aspirin, loading with Plavix 300 mg ?1 followed by 75 mg a day. Would recommend switching him from metoprolol to Coreg 6.25 mill grams p.o. twice daily, and starting him on Cozaar 25 mg p.o. daily. Would recommend premedication with Pepcid 20 mg p.o. ?1 now followed by Benadryl 50 mg tomorrow morning. He is already receive 125 mg of IV Solu-Medrol. His allergic reaction was almost 20 years ago, and had no problem receiving contrast dye for his CTA earlier today. In addition I recommend the patient undergo a left heart catheterization tomorrow morning given his chest pain, tobacco, hypertension, abnormal EKG and non-STEMI. In addition we will attempt to control his blood pressure and pain with anti-hypertensive medications, nitroglycerin paste 0.5 inches every 6 hours, and if this is unsuccessful would recommend switching him to amlodipine 5 mg p.o. daily for coronary vasodilatation. The risks/benefits of the procedure were thoroughly explained to the patient including specific attention to lack of on-site surgical backup, and the patient is agreed to proceed. Given the patient's metastatic prostate cancer, would not recommend bypass surgery should we find that he has significant three-vessel coronary disease. Would recommend for cutaneous intervention only versus medical therapy. The patient is found to have multivessel coronary disease he may require staged PCI approach. 2. Hyperlipidemia: Recommend obtaining a fasting lipid profile. Initiate statin based medications of Lipitor 40 mg p.o. nightly. 3. Tobacco cessation: I strongly recommended the patient to discontinue all tobacco products. 4. Thank you very much for the opportunity to participate in the cardiac care of your patient. Discussed with Dr. Corbett. Consultation time took place between 220 and 2:50 PM. Code Visit Inpatient E&M: 14070 Init Hosp L2
[2018-01-02] MEDS: Enoxaparin 60 MG/0.6 ML Syringe SC ×2 (15:13→21:58)
[2018-01-02] MEDS: Clopidogrel Bisulfate 300 MG Tablet PO (15:13)
[2018-01-02 16:05] LABS: Cholesterol 239 mg/dL (200); High Density Lipoprotein 36 mg/dL; Triglycerides 209 mg/dL; Very Low Density Lipoprotein 42 mg/dL (5-40)
[2018-01-02] MEDS: Morphine 2 MG/ML Syringe 1 MG IV (16:11)
[2018-01-02] MEDS: Morphine 2 MG/ML Syringe IV ×2 (17:18→21:58)
[2018-01-02] MEDS: Nitroglycerin Oint 1 INCH PACKET 0.5 INCH TRANSDERM. (17:20)
[2018-01-02] MEDS: Famotidine 20 MG Tablet PO (17:26)
[2018-01-02] MEDS: 0.9% NaCl Peripheral Flush Adult/Peds IV (21:58)
[2018-01-02] MEDS: Mirtazapine 15 MG Tablet PO (21:58)
[2018-01-02] MEDS: Atorvastatin Calcium 40 MG Tablet PO (21:58)
[2018-01-02] MEDS: Carvedilol 6.25 MG Tablet PO (21:58)
[2018-01-03] VITALS (36 sets, daily range): BP systolic 101–147; BP diastolic 57–109; PULSE 76–99; RESP 10–25; TEMP 35.9–36.9; O2SAT 97–100
--- NOTE | 2018-01-03 05:55 | EKG12_ITS ---
Test Reason : AM EKG Blood Pressure : / mmHG Vent. Rate : 091 BPM Atrial Rate : 091 BPM P-R Int : 138 ms QRS Dur : 078 ms QT Int : 410 ms P-R-T Axes : 069 -21 092 degrees QTc Int : 504 ms Normal sinus rhythm Possible Inferior infarct , age undetermined T wave abnormality, consider anterolateral ischemia Confirmed by JAZMINE ODELL, CLARIBEL ([id number]), supervising editor news reel PETEY DIAZ ([id number]) on 01/05/2018 1:57:53 PM Referred By: DR TUCKER Confirmed By:CLARIBEL LUCERO MD
[2018-01-03] MEDS: DiphenhydrAMINE 25 MG Capsule 50 MG PO (06:22)
[2018-01-03] MEDS: Carvedilol 6.25 MG Tablet PO ×2 (06:23→22:44)
[2018-01-03] MEDS: Aspirin E.C. 81 MG Tablet PO (06:23)
[2018-01-03] MEDS: Losartan Potassium 25 MG Tablet PO (06:23)
[2018-01-03] MEDS: Clopidogrel Bisulfate 75 MG Tablet PO (06:23)
[2018-01-03] MEDS: 0.9% Normal Saline 1,000 ML 15 ML IV (06:24)
[2018-01-03] MEDS: Nitroglycerin Oint 1 INCH PACKET 0.5 INCH TRANSDERM. ×2 (06:24→22:45)
[2018-01-03 06:28] LABS: Hemoglobin 11.3 g/dl (13.0-16.5); Mean Corp Hgb Conc 32.3 g/gl (32-36); Mean Corpuscular Hgb 28.9 pg (27.0-32.0); Mean Corpuscular Volume 89.5 fL (80-94); Mean Platelet Vol. 9.9 fl (6.2-12.0); Platelet Count 147 K/mm3 (150-450); RBC Distribution Width CV 15.6 % (11.6-14.6); RBC Distribution Width SD 50.3 fl (35.1-43.9); Red Blood Count 3.91 M/mm3 (4.6-6.2); White Blood Count 8.6 K/mm3 (4.4-11.0)
[2018-01-03 06:31] LABS: Scan Indicated on CBC? Y/N NO
[2018-01-03 06:34] LABS: Anion Gap 9 (5-15); BUN 14 mg/dL (7-18); BUN/Creat Ratio 21.3 RATIO (10-20); Calcium,Total 8.9 mg/dL (8.5-10.1); Chloride 107 mmol/L (98-107); Creatinine, Serum 0.66 mg/dL (0.70-1.30); EST Glomerular Filtration Rate 135 mL/min (>60); Est Glom Filt Rate - Afr Amer 163 mL/min (>60); Estimated Creatinine Clearance 117.92 ml/min; Glucose 112 mg/dL (74-106); Potassium 4.8 mmol/L (3.5-5.1); Sodium Level 141 mmol/L (136-145)
[2018-01-03 06:41] LABS: International Normalized Ratio 1.2; Prothrombin Time (Protime)PT. 15.2 SECONDS (11.7-14.9)
[2018-01-03 06:42] LABS: Partial Thromboplast Time 40.5 Seconds (24.1-36.2)
[2018-01-03] MEDS: 0.9% NaCl Peripheral Flush Adult/Peds IV ×5 (06:47→18:29)
[2018-01-03] MEDS: Morphine 2 MG/ML Syringe IV (06:48)
--- NOTE | 2018-01-03 07:43 | NURSING ---
VERBAL REPORT GIVEN TO CHILD CARE PROVIDER RN
[2018-01-03 08:06] LABS: Color, Urine Yellow (Yellow); Glucose, Dipstick Normal (Normal); Ketone-Dipstick 5 mg/dl (Negative); Leukocyte Esterase-Dipstick 25 /ul (Negative); Nitrite-Dipstick Negative (Negative); Occult Blood-Urine 150 /ul (Negative); Protein-Dipstick 30 mg/dl (Negative); Specific Gravity, Urine 1.015 (1.002-1.030); Urine Bilirubin Dipstick Negative (Negative); Urine Clarity Sl. Cloudy (Clear); Urine Urobilinogen Normal (Normal)
--- NOTE | 2018-01-03 08:37 | NURSING ---
verbal report given to delon GARRETT
--- NOTE | 2018-01-03 09:30 | EKG12_ITS ---
Test Reason : AM Blood Pressure : / mmHG Vent. Rate : 093 BPM Atrial Rate : 093 BPM P-R Int : 142 ms QRS Dur : 086 ms QT Int : 438 ms P-R-T Axes : 060 -08 168 degrees QTc Int : 544 ms Normal sinus rhythm ST & Marked T wave abnormality, consider anterolateral ischemia Prolonged QT Abnormal ECG When compared with ECG of 03-JAN-2018 09:37, MANUAL COMPARISON REQUIRED, DATA IS UNCONFIRMED Confirmed by JAZMINE ODELL, CLARIBEL ([id number]), acquisitions editor PETEY DIAZ ([id number]) on 01/05/2018 2:06:32 PM Referred By: BECKY Confirmed By:CLARIBEL LUCERO MD
[2018-01-03] MEDS: Morphine 4 MG/ML Syringe IV ×4 (09:43→22:48)
[2018-01-03] MEDS: Ondansetron 4 MG/2 ML Vial IV (09:44)
[2018-01-03] MEDS: 0.9% Normal Saline 1,000 ML 150 ML IV (09:54)
[2018-01-03 10:10] LABS: ACT Activated Clotting Time 197 sec (74-137)
--- NOTE | 2018-01-03 11:36 | CRPHASE1 ---
Patient Data/Charges Phase II Referral:: [facility] Start Phase II:: FOLLOWING CARDIOLOGY VISIT TO OFFICE Risk Factors/Lifestyle Smoking Status: Current every day smoker Hx Hypertension: No Hx Diabetes Mellitus Type 1: No Hx Diabetes Mellitus Type 2: No Hx Metabolic Disorders: No Hx Dyslipidemia: Yes Hx Obesity: No Height: 5 ft 7 in - BMI 22.2 Substance Abuse: Yes - CURRENT EVERY DAY [employer] USER Risk Factor for Sedentary Lifestyle: Moderate Risk Family History: Family History (Last Reviewed 11/18/17 @ 14:34 by Maya Carrillo) Father Diabetes Heart disease Hypertension Mother Lung cancer Laboratory Values: Cardiac Rehab Phase I Labs Triglycerides 209 mg/dL (-199) H 01/02/18 14:40 Cholesterol 239 mg/dL (200) H 01/02/18 14:40 LDL Cholesterol 161 mg/dL (0-130) H 01/02/18 14:40 HDL Cholesterol 36 mg/dL (40-) L 01/02/18 14:40 Phase I Education Given On:: [place], Nutrition, Antiplatelet medication, Smoking cessation Issues Affecting Care:: None Knowledge of Condition:: Yes Learning Preferences: Verbal, Written - GIRLFRIEND AT BEDSIDE. PATIENT NOT VERY ATTENTIVE. SHOWS NO INTEREST IN INFO Medical/Surgical History [place]:: No CAD:: No Pulmonary:: Yes - EMPHYSEMA Diabetes:: No Hypertension:: No Dyslipidemia:: Yes Arthritis:: Yes Anxiety:: Yes Discharge/Home/Social Eval Discharge Disposition: Home Marital Status: Single
--- NOTE | 2018-01-03 11:40 | CRPHASE1_ITS ---
Patient Data/Charges Phase II Referral:: [facility] Start Phase II:: FOLLOWING CARDIOLOGY VISIT TO OFFICE Risk Factors/Lifestyle Smoking Status: Current every day smoker Hx Hypertension: No Hx Diabetes Mellitus Type 1: No Hx Diabetes Mellitus Type 2: No Hx Metabolic Disorders: No Hx Dyslipidemia: Yes Hx Obesity: No Height: 5 ft 7 in - BMI 22.2 Substance Abuse: Yes - CURRENT EVERY DAY MARIJUA[employer] USER Risk Factor for Sedentary Lifestyle: Moderate Risk Family History: Family History (Last Reviewed 11/18/17 @ 14:34 by Maya Carrillo) Father Diabetes Heart disease Hypertension Mother Lung cancer Laboratory Values: Cardiac Rehab Phase I Labs Triglycerides 209 mg/dL (-199) H 01/02/18 14:40 Cholesterol 239 mg/dL (200) H 01/02/18 14:40 LDL Cholesterol 161 mg/dL (0-130) H 01/02/18 14:40 HDL Cholesterol 36 mg/dL (40-) L 01/02/18 14:40 Phase I Education Given On:: [place], Nutrition, Antiplatelet medication, Smoking cessation Issues Affecting Care:: None Knowledge of Condition:: Yes Learning Preferences: Verbal, Written - GIRLFRIEND AT BEDSIDE. PATIENT NOT VERY ATTENTIVE. SHOWS NO INTEREST IN INFO Medical/Surgical History [place]:: No CAD:: No Pulmonary:: Yes - EMPHYSEMA Diabetes:: No Hypertension:: No Dyslipidemia:: Yes Arthritis:: Yes Anxiety:: Yes Discharge/Home/Social Eval Discharge Disposition: Home Marital Status: Single
[2018-01-03 11:41] LABS: ACT Activated Clotting Time 147 sec (74-137)
--- NOTE | 2018-01-03 11:42 | CRPH1.INST_ITS ---
General Education CAD and cardiac anatomy and function:: Patient communicates acknowledgment, Needs reinforcement Explanation of diagnoses and procedures:: Patient communicates acknowledgment, Needs reinforcement Sign/Symptoms of [place]:: Patient communicates acknowledgment, Needs reinforcement Antiplatelet therapy: Patient communicates acknowledgment, Needs reinforcement Proper use of NTG-SL: Patient communicates acknowledgment, Needs reinforcement Emergency procedures and activation of EMS: Patient communicates acknowledgment , Needs reinforcement Compliance of all prescribed medications: Patient communicates acknowledgment, Needs reinforcement - GIRLFRIEND AT BEDSIDE. PT. SHOWS LACK OF INTEREST. Smoking Patient Nicotine/Smoking Risk Factors Are:: Cigarettes, Illicit drug use Recommendations Include:: Smoking cessation strategies/Smoking packet, Second- hand smoke recommendation, Participation in a smoking cessation program Nicotine/Smoking Response Code:: Patient communicates acknowledgment, Needs reinforcement Dyslipidemia Patient Dyslipidemia Risk Factors Are:: Total Cholesterol, Triglycerides, HDL, LDL Recommendations Include:: Lipid profile provided, Reviewed NCEP/ATP guidelines, Therapeutic Lifestyle Change dietary guidelines Dyslipidemia Response Code:: Patient communicates acknowledgment, Needs reinforcement Overweight/Obesity Patient Overweight/Obesity Risk Factors Are:: BMI Normal [24-29 & > 65 years old ] Hypertension Patient Hypertension Risk Factors Are:: No documented hx of HTN Diabetes Patient Diabetes Risk Factors Are:: No documented hx of diabetes Metabolic Syndrome Recommendations Include:: Does not meet criteria Sedentary Patient Sedentary Risk Factors Are:: Lack of regular exercise Recommendations Include:: Aerobic exercise 5-7 times/week for 20-30 minutes continuously, Benefits of regular exercise, Discussed home walking program, Monitored Outpatient Cardiac Rehab Sedentary Response Code:: Patient communicates acknowledgment, Needs reinforcement Stress Recommendations Include:: Identification of stressors, and assessment of coping skills, Stress management techniques Stress Response Code:: Patient communicates acknowledgment, Needs reinforcement
--- NOTE | 2018-01-03 14:12 | CASEMGMT ---
[facility] FU assessment completed, see link. DC PLAN: undetermined -BALDOM[facility] FU discussed Palliative Care and Home health with pt and significant other. Brochure given. If pt would like, [facility] FU let him know referral can be sent from hospital for them to see him @ home. -SO requested information on home health vs assistance @ home. [facility] FU discussed Home Health services vs private pay aide services while SO is at work. -pt feels he can return home safely @ this time. Will consider home health. -PT/OT evaluations pending. Duane GOETZ RN ACM
--- NOTE | 2018-01-03 17:41 | PCM.PN.HOSP ---
Patient Problems: Active and Suspected Problems (Last Reviewed 01/02/18 @ 14:27 by Kimmy Chowdhury MD) Acute non-ST elevation myocardial infarction (NSTEMI) (Acute) Subjective: Still has some residual chest pain but he tolerated the intervention well. Vitals/I&O's: Vital Signs Temp Pulse Resp BP Pulse Ox 97.4 F L 93 16 126/89 H 97 01/03/18 16:00 01/03/18 16:00 01/03/18 16:00 01/03/18 16:00 01/03/18 16:00 Oxygen Flow Rate (L/min) 2 Oxygen Delivery Method Room Air Weight: 141 lb 15.996 oz Body Mass Index (BMI) 22.2 Intake and Output for Last 24 Hours 01/01/18 01/02/18 01/03/18 23:59 23:59 23:59 Intake Total 720 / 720 0 / 0 Output Total 0 / 0 500 / 500 Balance 720 / 720 -500 / -500 General: Alert, Oriented x3, Cooperative, No apparent distress HEENT: Atraumatic, EOMI, Normocephalic Oral: Moist Mucosa Neck: Supple, No JVD Lungs: Clear to auscultation, Normal air movement, No rhonchi, No wheeze, No rales Cardiovascular: Regular rate, Regular Rhythm, Normal S1, Normal S2, No murmurs Abdomen: Soft, Non Tender, Non-Distended, No Hepato-splenomegaly Extremities: No edema, Capillary Refill Less than 3 Seconds Skin: No rashes, No breakdown Psych/Mental Status: Normal Affect, Appropriate Laboratory Results 01/03/18 05:45: WBC 8.6, RBC 3.91 L, Hgb 11.3 L, Hct 35.0 L, MCV 89.5, MCH 28.9, MCHC 32.3, RDW 15.6 H, RDW Differential 50.3 H, Plt Count 147 L, MPV 9.9 01/03/18 05:45: Sodium 141, Potassium 4.8, Chloride 107, Carbon Dioxide 25.0, Anion Gap 9, BUN 14, Creatinine 0.66 L, Estim Creat Clear Calc 117.92, Est GFR (MDRD) Af Amer 163, Est GFR (MDRD) Non-Af 135, BUN/Creatinine Ratio 21.3 H, Glucose 112 H, Calcium 8.9 01/03/18 05:45: PT 15.2 H, INR 1.2, APTT 40.5 H 01/03/18 06:20: Urine Color Yellow, Urine Clarity Sl. Cloudy, Urine pH 6.0, Ur Specific [place] 1.015, Urine Protein 30 H, Urine Glucose (UA) Normal, Urine Ketones 5 H, Urine Occult Blood 150 H, Urine Nitrite Negative, Urine Bilirubin Negative, Urine Urobilinogen Normal, Ur Leukocyte Esterase 25 H 01/03/18 09:07: Activated Clotting Time 197 H 01/03/18 11:27: Activated Clotting Time 147 H Current Medications Acetaminophen (Tylenol) 650 mg PO Q6H PRN PRN PRN Reason: Mild Pain (1-3)/Temp > 100.7 F Aspirin (Ecotrin) 81 mg PO DAILY@0800 [facility] Last Admin: 01/03/18 06:23 Dose: 81 mg Atorvastatin Calcium (Lipitor) 40 mg PO QHS [facility] Last Admin: 01/02/18 21:58 Dose: 40 mg Atropine Sulfate () 0.5 mg IV UD PRN PRN Reason: HR <50 bpm Bisacodyl (Dulcolax) 5 mg PO DAILY PRN PRN PRN Reason: Constipation Carvedilol (Coreg) 6.25 mg PO BID [facility] Last Admin: 01/03/18 06:23 Dose: 6.25 mg Clopidogrel Bisulfate (Plavix) 75 mg PO DAILY [facility] Last Admin: 01/03/18 06:23 Dose: 75 mg Heparin Sodium (Beef Lung) (Heparin 500 Unit/5 Ml (100/Ml)) 500 unit IV UD PRN PRN Reason: HEPARIN FLUSH Sodium Chloride () 1,000 mls @ 15 mls/hr IV .Q48H [facility] PRN Reason: KVO Last Admin: 01/03/18 06:24 Dose: 15 mls/hr Sodium Chloride () 1,000 mls @ 1 mls/hr IV .Q48H PRN PRN Reason: SALINE FLUSH Labetalol HCl (Trandate) 5 mg IV X1 PRN PRN Reason: SBP > 160 when pulling sheath Lorazepam (Ativan) 1 mg PO Q12H PRN PRN PRN Reason: ANXIETY Losartan Potassium (Cozaar) 25 mg PO DAILY [facility] Last Admin: 01/03/18 06:23 Dose: 25 mg Magnesium Hydroxide (Milk Of Magnesia) 30 ml PO DAILY PRN PRN Reason: Constipation Mirtazapine (Remeron) 15 mg PO QHS [facility] Last Admin: 01/02/18 21:58 Dose: 15 mg Morphine Sulfate () 2 - 4 mg IV Q4H PRN PRN PRN Reason: chest pain Last Admin: 01/03/18 06:48 Dose: 2 mg Morphine Sulfate () 2 - 4 mg IV Q4H PRN PRN PRN Reason: chest pain Last Admin: 01/03/18 14:24 Dose: 4 mg Nitroglycerin (Nitrostat) 0.4 mg SUBLINGUAL Q5M PRN PRN Reason: CHEST PAIN Last Admin: 01/02/18 13:42 Dose: 0.4 mg Nitroglycerin (Nitrobid) 0.5 inch TRANSDERM. Q12 [facility] Last Admin: 01/03/18 06:24 Dose: 0.5 inch Nutritional Formula (Lactose Free) (Ensure Enlive) 120 ml PO 4X/DAY [facility] Last Admin: 01/03/18 10:33 Dose: Not Given Ondansetron HCl (Zofran) 4 mg IV Q8H PRN PRN PRN Reason: NAUSEA Last Admin: 01/03/18 09:44 Dose: 4 mg Psyllium Hydrophilic Mucilloid (Metamucil) 1 packet PO DAILY PRN PRN PRN Reason: CONSTIPATION Sodium Chloride () 5 - 30 ml IV UD PRN PRN Reason: SALINE FLUSH Last Admin: 01/03/18 14:25 Dose: 10 ml Sodium Chloride () 500 ml IV BOLUS PRN PRN Reason: VASO-VAGAL PROTOCOL Medical Necessity - Tobacco Use Smoking Status: Current every day smoker Tobacco Use: Cigarettes Assessment/Plan All Active Problems (Last Reviewed 01/02/18 @ 14:27 by Kimmy Chowdhury MD) Acute non-ST elevation myocardial infarction (NSTEMI) (Acute) Lung nodule (Resolved) 1. Acute NSTEMI/CAD/HTN/HLD/Tobacco Use - Had inferior lead Q waves and with no acute ST changes - Troponin was elevated to 4.080 on admission - He was taken for cath today after being loaded with plavix, aspirin and lovenox last night - He is now s/p AARON placement and still has significant disease elsewhere - He will need asa and plavix on DC - discussed that he will need to quit smoking completely - c/w nitro past and will need a nitro patch on dc for pain - will c/w his other home HTN medicatiosn - C/w statin 2. Metastatic prostate cancer to the bone - He was supposed to see pain management today - He will reschedule - He is on oxycodone at home which makes him sleepy but controls the pain - We discussed other options as well with oxycontin or a fentanyl patch based on what his pain management doctor thinks DVT: Lovenox Diet: Cardiac Code Visit Inpatient E&M: 05639 Subs Hosp L2
--- NOTE | 2018-01-03 17:54 | PN_ITS ---
Patient Problems: Active and Suspected Problems (Last Reviewed 01/02/18 @ 14:27 by Kimmy Chowdhury MD) Acute non-ST elevation myocardial infarction (NSTEMI) (Acute) Subjective: Still has some residual chest pain but he tolerated the intervention well. Vitals/I&O's: Vital Signs Temp Pulse Resp BP Pulse Ox 97.4 F L 93 16 126/89 H 97 01/03/18 16:00 01/03/18 16:00 01/03/18 16:00 01/03/18 16:00 01/03/18 16:00 Oxygen Flow Rate (L/min) 2 Oxygen Delivery Method Room Air Weight: 141 lb 15.996 oz Body Mass Index (BMI) 22.2 Intake and Output for Last 24 Hours 01/01/18 01/02/18 01/03/18 23:59 23:59 23:59 Intake Total 720 / 720 0 / 0 Output Total 0 / 0 500 / 500 Balance 720 / 720 -500 / -500 General: Alert, Oriented x3, Cooperative, No apparent distress HEENT: Atraumatic, EOMI, Normocephalic Oral: Moist Mucosa Neck: Supple, No JVD Lungs: Clear to auscultation, Normal air movement, No rhonchi, No wheeze, No rales Cardiovascular: Regular rate, Regular Rhythm, Normal S1, Normal S2, No murmurs Abdomen: Soft, Non Tender, Non-Distended, No Hepato-splenomegaly Extremities: No edema, Capillary Refill Less than 3 Seconds Skin: No rashes, No breakdown Psych/Mental Status: Normal Affect, Appropriate Laboratory Results 01/03/18 05:45: WBC 8.6, RBC 3.91 L, Hgb 11.3 L, Hct 35.0 L, MCV 89.5, MCH 28.9 , MCHC 32.3, RDW 15.6 H, RDW Differential 50.3 H, Plt Count 147 L, MPV 9.9 01/03/18 05:45: Sodium 141, Potassium 4.8, Chloride 107, Carbon Dioxide 25.0, Anion Gap 9, BUN 14, Creatinine 0.66 L, Estim Creat Clear Calc 117.92, Est GFR ( MDRD) Af Amer 163, Est GFR (MDRD) Non-Af 135, BUN/Creatinine Ratio 21.3 H, Glucose 112 H, Calcium 8.9 01/03/18 05:45: PT 15.2 H, INR 1.2, APTT 40.5 H 01/03/18 06:20: Urine Color Yellow, Urine Clarity Sl. Cloudy, Urine pH 6.0, Ur Specific [place] 1.015, Urine Protein 30 H, Urine Glucose (UA) Normal, Urine Ketones 5 H, Urine Occult Blood 150 H, Urine Nitrite Negative, Urine Bilirubin Negative, Urine Urobilinogen Normal, Ur Leukocyte Esterase 25 H 01/03/18 09:07: Activated Clotting Time 197 H 01/03/18 11:27: Activated Clotting Time 147 H Current Medications Acetaminophen (Tylenol) 650 mg PO Q6H PRN PRN PRN Reason: Mild Pain (1-3)/Temp > 100.7 F Aspirin (Ecotrin) 81 mg PO DAILY@0800 [facility] Last Admin: 01/03/18 06:23 Dose: 81 mg Atorvastatin Calcium (Lipitor) 40 mg PO QHS [facility] Last Admin: 01/02/18 21:58 Dose: 40 mg Atropine Sulfate () 0.5 mg IV UD PRN PRN Reason: HR <50 bpm Bisacodyl (Dulcolax) 5 mg PO DAILY PRN PRN PRN Reason: Constipation Carvedilol (Coreg) 6.25 mg PO BID [facility] Last Admin: 01/03/18 06:23 Dose: 6.25 mg Clopidogrel Bisulfate (Plavix) 75 mg PO DAILY [facility] Last Admin: 01/03/18 06:23 Dose: 75 mg Heparin Sodium (Beef Lung) (Heparin 500 Unit/5 Ml (100/Ml)) 500 unit IV UD PRN PRN Reason: HEPARIN FLUSH Sodium Chloride () 1,000 mls @ 15 mls/hr IV .Q48H [facility] PRN Reason: KVO Last Admin: 01/03/18 06:24 Dose: 15 mls/hr Sodium Chloride () 1,000 mls @ 1 mls/hr IV .Q48H PRN PRN Reason: SALINE FLUSH Labetalol HCl (Trandate) 5 mg IV X1 PRN PRN Reason: SBP > 160 when pulling sheath Lorazepam (Ativan) 1 mg PO Q12H PRN PRN PRN Reason: ANXIETY Losartan Potassium (Cozaar) 25 mg PO DAILY [facility] Last Admin: 01/03/18 06:23 Dose: 25 mg Magnesium Hydroxide (Milk Of Magnesia) 30 ml PO DAILY PRN PRN Reason: Constipation Mirtazapine (Remeron) 15 mg PO QHS [facility] Last Admin: 01/02/18 21:58 Dose: 15 mg Morphine Sulfate () 2 - 4 mg IV Q4H PRN PRN PRN Reason: chest pain Last Admin: 01/03/18 06:48 Dose: 2 mg Morphine Sulfate () 2 - 4 mg IV Q4H PRN PRN PRN Reason: chest pain Last Admin: 01/03/18 14:24 Dose: 4 mg Nitroglycerin (Nitrostat) 0.4 mg SUBLINGUAL Q5M PRN PRN Reason: CHEST PAIN Last Admin: 01/02/18 13:42 Dose: 0.4 mg Nitroglycerin (Nitrobid) 0.5 inch TRANSDERM. Q12 [facility] Last Admin: 01/03/18 06:24 Dose: 0.5 inch Nutritional Formula (Lactose Free) (Ensure Enlive) 120 ml PO 4X/DAY [facility] Last Admin: 01/03/18 10:33 Dose: Not Given Ondansetron HCl (Zofran) 4 mg IV Q8H PRN PRN PRN Reason: NAUSEA Last Admin: 01/03/18 09:44 Dose: 4 mg Psyllium Hydrophilic Mucilloid (Metamucil) 1 packet PO DAILY PRN PRN PRN Reason: CONSTIPATION Sodium Chloride () 5 - 30 ml IV UD PRN PRN Reason: SALINE FLUSH Last Admin: 01/03/18 14:25 Dose: 10 ml Sodium Chloride () 500 ml IV BOLUS PRN PRN Reason: VASO-VAGAL PROTOCOL Medical Necessity - Tobacco Use Smoking Status: Current every day smoker Tobacco Use: Cigarettes Assessment/Plan All Active Problems (Last Reviewed 01/02/18 @ 14:27 by Kimmy Chowdhury MD) Acute non-ST elevation myocardial infarction (NSTEMI) (Acute) Lung nodule (Resolved) 1. Acute NSTEMI/CAD/HTN/HLD/Tobacco Use - Had inferior lead Q waves and with no acute ST changes - Troponin was elevated to 4.080 on admission - He was taken for cath today after being loaded with plavix, aspirin and lovenox last night - He is now s/p AARON placement and still has significant disease elsewhere - He will need asa and plavix on DC - discussed that he will need to quit smoking completely - c/w nitro past and will need a nitro patch on dc for pain - will c/w his other home HTN medicatiosn - C/w statin 2. Metastatic prostate cancer to the bone - He was supposed to see pain management today - He will reschedule - He is on oxycodone at home which makes him sleepy but controls the pain - We discussed other options as well with oxycontin or a fentanyl patch based on what his pain management doctor thinks DVT: Lovenox Diet: Cardiac Code Visit Inpatient E&M: 33891 Subs Hosp L2
--- NOTE | 2018-01-03 19:07 | NURSING ---
Pt's bedrest complete at 1845. Pt assisted to side of bed, dangled feet and used bathroom. Assisted pt to chair. R groin remains soft without bruising/bleeding. Pt reports slight tenderness w/ palpation.
[2018-01-03] MEDS: Atorvastatin Calcium 40 MG Tablet PO (22:44)
[2018-01-03] MEDS: Mirtazapine 15 MG Tablet PO (22:44)
[2018-01-04] VITALS (15 sets, daily range): BP systolic 92–122; BP diastolic 45–85; PULSE 80–107; RESP 11–16; TEMP 36.8–37.1; O2SAT 94–98
[2018-01-04] MEDS: Morphine 4 MG/ML Syringe IV ×2 (02:53→08:26)
[2018-01-04] MEDS: 0.9% NaCl Peripheral Flush Adult/Peds IV ×2 (02:57→08:27)
[2018-01-04 04:46] LABS: Hematocrit 30.8 % (40-54); Hemoglobin 10.2 g/dl (13.0-16.5); Mean Corp Hgb Conc 33.1 g/gl (32-36); Mean Corpuscular Hgb 30.4 pg (27.0-32.0); Mean Corpuscular Volume 91.9 fL (80-94); Mean Platelet Vol. 10.3 fl (6.2-12.0); Platelet Count 149 K/mm3 (150-450); RBC Distribution Width CV 15.7 % (11.6-14.6); RBC Distribution Width SD 50.7 fl (35.1-43.9); Red Blood Count 3.35 M/mm3 (4.6-6.2); White Blood Count 6.6 K/mm3 (4.4-11.0)
[2018-01-04 04:48] LABS: Scan Indicated on CBC? Y/N NO
[2018-01-04 05:14] LABS: Anion Gap 12 (5-15); BUN 14 mg/dL (7-18); Calcium,Total 8.5 mg/dL (8.5-10.1); Chloride 106 mmol/L (98-107); Creatinine, Serum 0.74 mg/dL (0.70-1.30); EST Glomerular Filtration Rate 118 mL/min (>60); Est Glom Filt Rate - Afr Amer 143 mL/min (>60); Estimated Creatinine Clearance 105.17 ml/min; Glucose 103 mg/dL (74-106); Sodium Level 143 mmol/L (136-145)
--- NOTE | 2018-01-04 08:18 | PN_ITS ---
Patient Problems: Active and Suspected Problems (Last Reviewed 01/02/18 @ 14:27 by Kimmy Chowdhury MD) Acute non-ST elevation myocardial infarction (NSTEMI) (Acute) Subjective: Chest pain is resolved with nitro paste. Still has hip pain from the bone mets and has no appetite Objective: General: Alert, Oriented x3, Cooperative, No apparent distress HEENT: Atraumatic, EOMI, Normocephalic Oral: Moist Mucosa Neck: Supple, No JVD Lungs: Clear to auscultation, Normal air movement, No rhonchi, No wheeze, No rales Cardiovascular: Regular rate, Regular Rhythm, Normal S1, Normal S2, No murmurs Abdomen: Soft, Non Tender, Non-Distended, No Hepato-splenomegaly Extremities: No edema, Capillary Refill Less than 3 Seconds Skin: No rashes, No breakdown Psych/Mental Status: Normal Affect, Appropriate Vitals/I&O's: Vital Signs Temp Pulse Resp BP Pulse Ox 98.2 F 107 H 16 93/45 L 96 01/04/18 06:00 01/04/18 06:00 01/04/18 06:00 01/04/18 06:00 01/04/18 06:00 Oxygen Flow Rate (L/min) 2 Oxygen Delivery Method Room Air Weight: 141 lb 15.996 oz Body Mass Index (BMI) 22.2 Intake and Output for Last 24 Hours 01/02/18 01/03/18 01/04/18 23:59 23:59 23:59 Intake Total 720 / 720 1000 / 1000 750 / 750 Output Total 0 / 0 500 / 500 1150 / 1150 Balance 720 / 720 500 / 500 -400 / -400 Laboratory Results 01/03/18 09:07: Activated Clotting Time 197 H 01/03/18 11:27: Activated Clotting Time 147 H 01/04/18 04:35: Sodium 143, Potassium 4.0, Chloride 106, Carbon Dioxide 25.0, Anion Gap 12, BUN 14, Creatinine 0.74, Estim Creat Clear Calc 105.17, Est GFR ( MDRD) Af Amer 143, Est GFR (MDRD) Non-Af 118, BUN/Creatinine Ratio 19.0, Glucose 103, Calcium 8.5 01/04/18 04:35: WBC 6.6, RBC 3.35 L, Hgb 10.2 L, Hct 30.8 L, MCV 91.9, MCH 30.4 , MCHC 33.1, RDW 15.7 H, RDW Differential 50.7 H, Plt Count 149 L, MPV 10.3 Current Medications Acetaminophen (Tylenol) 650 mg PO Q6H PRN PRN PRN Reason: Mild Pain (1-3)/Temp > 100.7 F Aspirin (Ecotrin) 81 mg PO DAILY@0800 [facility] Last Admin: 01/03/18 06:23 Dose: 81 mg Atorvastatin Calcium (Lipitor) 40 mg PO QHS [facility] Last Admin: 01/03/18 22:44 Dose: 40 mg Atropine Sulfate () 0.5 mg IV UD PRN PRN Reason: HR <50 bpm Bisacodyl (Dulcolax) 5 mg PO DAILY PRN PRN PRN Reason: Constipation Carvedilol (Coreg) 6.25 mg PO BID [facility] Last Admin: 01/03/18 22:44 Dose: 6.25 mg Clopidogrel Bisulfate (Plavix) 75 mg PO DAILY [facility] Last Admin: 01/03/18 06:23 Dose: 75 mg Heparin Sodium (Beef Lung) (Heparin 500 Unit/5 Ml (100/Ml)) 500 unit IV UD PRN PRN Reason: HEPARIN FLUSH Sodium Chloride () 1,000 mls @ 15 mls/hr IV .Q48H [facility] PRN Reason: KVO Last Admin: 01/03/18 06:24 Dose: 15 mls/hr Sodium Chloride () 1,000 mls @ 1 mls/hr IV .Q48H PRN PRN Reason: SALINE FLUSH Labetalol HCl (Trandate) 5 mg IV X1 PRN PRN Reason: SBP > 160 when pulling sheath Lorazepam (Ativan) 1 mg PO Q12H PRN PRN PRN Reason: ANXIETY Losartan Potassium (Cozaar) 25 mg PO DAILY [facility] Last Admin: 01/03/18 06:23 Dose: 25 mg Magnesium Hydroxide (Milk Of Magnesia) 30 ml PO DAILY PRN PRN Reason: Constipation Mirtazapine (Remeron) 15 mg PO QHS [facility] Last Admin: 01/03/18 22:44 Dose: 15 mg Morphine Sulfate () 2 - 4 mg IV Q4H PRN PRN PRN Reason: chest pain Last Admin: 01/03/18 06:48 Dose: 2 mg Morphine Sulfate () 2 - 4 mg IV Q4H PRN PRN PRN Reason: chest pain Last Admin: 01/04/18 02:53 Dose: 4 mg Nitroglycerin (Nitrostat) 0.4 mg SUBLINGUAL Q5M PRN PRN Reason: CHEST PAIN Last Admin: 01/02/18 13:42 Dose: 0.4 mg Nitroglycerin (Nitrobid) 0.5 inch TRANSDERM. Q12 [facility] Last Admin: 01/03/18 22:45 Dose: 0.5 inch Nutritional Formula (Lactose Free) (Ensure Enlive) 120 ml PO 4X/DAY [facility] Last Admin: 01/03/18 22:45 Dose: 120 ml Ondansetron HCl (Zofran) 4 mg IV Q8H PRN PRN PRN Reason: NAUSEA Last Admin: 01/03/18 09:44 Dose: 4 mg Psyllium Hydrophilic Mucilloid (Metamucil) 1 packet PO DAILY PRN PRN PRN Reason: CONSTIPATION Sodium Chloride () 5 - 30 ml IV UD PRN PRN Reason: SALINE FLUSH Last Admin: 01/04/18 02:57 Dose: 30 ml Sodium Chloride () 500 ml IV BOLUS PRN PRN Reason: VASO-VAGAL PROTOCOL Medical Necessity - Tobacco Use Smoking Status: Current every day smoker Tobacco Use: Cigarettes Assessment/Plan All Active Problems (Last Reviewed 01/02/18 @ 14:27 by Kimmy Chowdhury MD) Acute non-ST elevation myocardial infarction (NSTEMI) (Acute) Lung nodule (Resolved) 1. Acute NSTEMI/CAD/HTN/HLD/Tobacco Use - Had inferior lead Q waves and with no acute ST changes - Troponin was elevated to 4.080 on admission - He was taken for cath today after being loaded with plavix, aspirin and lovenox last night - He is now s/p AARON placement and still has significant disease elsewhere - He will need asa and plavix on DC - discussed that he will need to quit smoking completely - c/w nitro past and will need a nitro patch on dc for pain - will c/w his other home HTN medications - C/w statin 2. Metastatic prostate cancer to the bone - He was supposed to see pain management today - He will reschedule - He is on oxycodone at home which makes him sleepy but controls the pain, he was switched to PO dilaudid which is what he would like to continue - We discussed other options as well with oxycontin or a fentanyl patch based on what his pain management doctor thinks 3. Depression/No appetite - He was started on remeron just prior to his admission - Will continue DVT: Lovenox Diet: Cardiac Dispo: Likely DC home today. Code Visit Inpatient E&M: 83639 Subs Hosp L2
--- NOTE | 2018-01-04 09:21 | PCM.PN.CARD ---
Subjectve: Patient doing very well this morning, feels much better, no further chest pain. Telemetry normal sinus rhythm, no arrhythmias noted. Right groin is clean/dry/intact. Creatinine and hemoglobin within nominal limits. Objective: Vital Signs Temp Pulse Resp BP Pulse Ox 98.2 F 107 H 16 93/45 L 96 01/04/18 06:00 01/04/18 06:00 01/04/18 06:00 01/04/18 06:00 01/04/18 06:00 Oxygen Flow Rate (L/min) 2 Oxygen Delivery Method Room Air Weight: 141 lb 15.996 oz Body Mass Index (BMI) 22.2 Intake and Output for Last 24 Hours 01/02/18 01/03/18 01/04/18 23:59 23:59 23:59 Intake Total 720 / 720 1000 / 1000 750 / 750 Output Total 0 / 0 500 / 500 1150 / 1150 Balance 720 / 720 500 / 500 -400 / -400 General: Awake, Alert, Oriented x 3 HEENT: PERRL, EOMI, Sclera Non Icteric Neck: Supple, Good ROM, No Lymph Node Enlargement Lungs: Clear to auscultation Cardiovascular: Regular Rhythm, Normal S1, Normal S2, No Murmurs, No Rubs, No Gallops Vascular: No Carotid Bruits, Normal Femoral Pulses, Normal Radial Pulses, Normal Dorsalis Pedal Pulse, Normal Posterior Tibial Pulses Abdomen: Bowel Sounds Present, Soft, Non Tender, No HSM, No Organomegaly Extremities: No Cyanosis, No Clubbing, No edema Neurological: No Focal Motor or Sensory Deficit 01/04/18 04:35: Sodium 143, Potassium 4.0, Chloride 106, Carbon Dioxide 25.0, Anion Gap 12, BUN 14, Creatinine 0.74, Est GFR (MDRD) Af Amer 143, Est GFR (MDRD) Non-Af 118, BUN/Creatinine Ratio 19.0, Glucose 103, Calcium 8.5 01/04/18 04:35: WBC 6.6, RBC 3.35 L, Hgb 10.2 L, Hct 30.8 L, MCV 91.9, MCH 30.4, MCHC 33.1, RDW 15.7 H, RDW Differential 50.7 H, Plt Count 149 L, MPV 10.3 Rhythm: EKG: ECHO: Stress Test: Cardiac Cath: PCI: CT Surgery: Holter monitor: EPS: PPM: CXR: Chest CT Scan: Medical Necessity - Tobacco Use Smoking Status: Current every day smoker Tobacco Use: Cigarettes Assessment/Plan 1. Non-STEMI: The patient presents with acute onset chest pain possibly exacerbated by switching him from oxycodone to Dilaudid, with associated EKG findings of possible old inferior/posterior wall myocardial infarction of an unknown age. In addition his first troponin was 0.47 and then increase to 3.47 with ongoing intermittent chest pain. Patient underwent diagnostic coronary angiogram on 01/03/18 which demonstrated complex anterior coronary stenosis of the diagonal #3, and proximal/mid LAD. He underwent complex angioplasty and drug-eluting stent to the mid diagonal, as well as to the proximal LAD with balloon inflation only of the ostium of the diagonal #1 and diagonal #2. Patient had nonobstructive disease of his left circumflex and right coronary artery which will be left for medical management at this time. Patient's chest pain symptoms have completely resolved as best I can tell, although it is somewhat difficult to interpret given his metastatic prostate cancer. Patient feels much better and his right groin is clean/dry/intact. EKG demonstrates normal sinus rhythm with anterior T-wave inversion. The tree is negative. I believe the patient may be discharged home today and follow-up with me going forward. Given his metastatic prostate cancer to his bones, I do not believe he is a good candidate for cardiac rehab so as to avoid possible pathologic fractures. 2. Hyperlipidemia: Recommend obtaining a fasting lipid profile. Initiate statin based medications of Lipitor 40 mg p.o. nightly. P lipid profile in 6 weeks time. 3. Tobacco cessation: I strongly recommended the patient to discontinue all tobacco products. 4. Thank you very much for the opportunity to participate in the cardiac care of your patient. Patient may be discharged home today.
[2018-01-04] MEDS: Losartan Potassium 25 MG Tablet PO (09:24)
[2018-01-04] MEDS: Carvedilol 6.25 MG Tablet PO (09:24)
[2018-01-04] MEDS: Clopidogrel Bisulfate 75 MG Tablet PO (09:24)
[2018-01-04] MEDS: Aspirin E.C. 81 MG Tablet PO (09:25)
--- NOTE | 2018-01-04 09:28 | PN.CARD_ITS ---
Subjectve: Patient doing very well this morning, feels much better, no further chest pain. Telemetry normal sinus rhythm, no arrhythmias noted. Right groin is clean/dry /intact. Creatinine and hemoglobin within nominal limits. Objective: Vital Signs Temp Pulse Resp BP Pulse Ox 98.2 F 107 H 16 93/45 L 96 01/04/18 06:00 01/04/18 06:00 01/04/18 06:00 01/04/18 06:00 01/04/18 06:00 Oxygen Flow Rate (L/min) 2 Oxygen Delivery Method Room Air Weight: 141 lb 15.996 oz Body Mass Index (BMI) 22.2 Intake and Output for Last 24 Hours 01/02/18 01/03/18 01/04/18 23:59 23:59 23:59 Intake Total 720 / 720 1000 / 1000 750 / 750 Output Total 0 / 0 500 / 500 1150 / 1150 Balance 720 / 720 500 / 500 -400 / -400 General: Awake, Alert, Oriented x 3 HEENT: PERRL, EOMI, Sclera Non Icteric Neck: Supple, Good ROM, No Lymph Node Enlargement Lungs: Clear to auscultation Cardiovascular: Regular Rhythm, Normal S1, Normal S2, No Murmurs, No Rubs, No Gallops Vascular: No Carotid Bruits, Normal Femoral Pulses, Normal Radial Pulses, Normal Dorsalis Pedal Pulse, Normal Posterior Tibial Pulses Abdomen: Bowel Sounds Present, Soft, Non Tender, No HSM, No Organomegaly Extremities: No Cyanosis, No Clubbing, No edema Neurological: No Focal Motor or Sensory Deficit 01/04/18 04:35: Sodium 143, Potassium 4.0, Chloride 106, Carbon Dioxide 25.0, Anion Gap 12, BUN 14, Creatinine 0.74, Est GFR (MDRD) Af Amer 143, Est GFR (MDRD ) Non-Af 118, BUN/Creatinine Ratio 19.0, Glucose 103, Calcium 8.5 01/04/18 04:35: WBC 6.6, RBC 3.35 L, Hgb 10.2 L, Hct 30.8 L, MCV 91.9, MCH 30.4 , MCHC 33.1, RDW 15.7 H, RDW Differential 50.7 H, Plt Count 149 L, MPV 10.3 Rhythm: EKG: ECHO: Stress Test: Cardiac Cath: PCI: CT Surgery: Holter monitor: EPS: PPM: CXR: Chest CT Scan: Medical Necessity - Tobacco Use Smoking Status: Current every day smoker Tobacco Use: Cigarettes Assessment/Plan 1. Non-STEMI: The patient presents with acute onset chest pain possibly exacerbated by switching him from oxycodone to Dilaudid, with associated EKG findings of possible old inferior/posterior wall myocardial infarction of an unknown age. In addition his first troponin was 0.47 and then increase to 3.47 with ongoing intermittent chest pain. Patient underwent diagnostic coronary angiogram on 01/03/18 which demonstrated complex anterior coronary stenosis of the diagonal #3, and proximal/mid LAD. He underwent complex angioplasty and drug-eluting stent to the mid diagonal, as well as to the proximal LAD with balloon inflation only of the ostium of the diagonal #1 and diagonal #2. Patient had nonobstructive disease of his left circumflex and right coronary artery which will be left for medical management at this time. Patient's chest pain symptoms have completely resolved as best I can tell, although it is somewhat difficult to interpret given his metastatic prostate cancer. Patient feels much better and his right groin is clean/dry/intact. EKG demonstrates normal sinus rhythm with anterior T-wave inversion. The tree is negative. I believe the patient may be discharged home today and follow-up with me going forward. Given his metastatic prostate cancer to his bones, I do not believe he is a good candidate for cardiac rehab so as to avoid possible pathologic fractures. 2. Hyperlipidemia: Recommend obtaining a fasting lipid profile. Initiate statin based medications of Lipitor 40 mg p.o. nightly. P lipid profile in 6 weeks time. 3. Tobacco cessation: I strongly recommended the patient to discontinue all tobacco products. 4. Thank you very much for the opportunity to participate in the cardiac care of your patient. Patient may be discharged home today.
--- NOTE | 2018-01-04 09:30 | EKG12_ITS ---
Test Reason : POST CATH Blood Pressure : / mmHG Vent. Rate : 092 BPM Atrial Rate : 092 BPM P-R Int : 150 ms QRS Dur : 084 ms QT Int : 442 ms P-R-T Axes : 066 -07 244 degrees QTc Int : 546 ms Normal sinus rhythm ST & Marked T wave abnormality, consider anterolateral ischemia Prolonged QT Abnormal ECG When compared with ECG of 03-JAN-2018 06:21, MANUAL COMPARISON REQUIRED, DATA IS UNCONFIRMED Confirmed by JAZMINE ODELL, CLARIBEL ([id number]), acquisitions editor PETEY DIAZ ([id number] on 01/05/2018 2:07:25 PM Referred By: TISHA Confirmed By:CLARIBEL LUCERO MD
[2018-01-04] MEDS: Nitroglycerin Oint 1 INCH PACKET 0.5 INCH TRANSDERM. (09:32)
--- NOTE | 2018-01-04 10:57 | PCM.DC ---
- Discharge Diagnoses Current Active Problems: Current Active and Chronic Problems (Last Reviewed 01/02/18 @ 14:27 by Kimmy Chowdhury MD) Acute non-ST elevation myocardial infarction (NSTEMI) (Acute) You will use the following diet at home:: Cardiac Your food should be the consistency of: Regular Your liquids should be the consistency of: Regular/Thin Discharge Activity: May not drive while taking narcotic pain medications. Call your doctor if you observe: Numbness or Tingling, Shortness of breath, Dizziness, Fainting spells, Chest pain Allergies/Adverse Reactions: Allergies Iodinated Contrast- Oral and IV Dye [CONTRASTS] Allergy (Severe, Verified 12/29/17 12:59) Anaphylaxis shellfish derived Allergy (Severe, Verified 12/29/17 12:59) Anaphylaxis Medications to take at Discharge ALPRAZolam [Xanax] 0.5 mg PO BID PRN PRN 02/18/17 Ergocalciferol [Vitamin D] 50,000 unit PO Q7D 02/18/17 Leuprolide Acetate [Lupron Depot] 30 mg IM UD MDD 6 month 02/18/17 Multivit with Iron,Minerals [Cerovite Jr] 1 tab PO DAILY 02/18/17 Omeprazole [Prilosec] 20 mg PO DAILY 02/18/17 Ropinirole HCl [Requip] 1 mg PO QHS 02/18/17 HYDROmorphone tablet [Dilaudid] 2 mg PO Q4H PRN PRN #120 tablet 12/29/17 Metoclopramide [Reglan] 10 mg PO 4X/DAY PRN 01/02/18 Mirtazapine [Remeron] 15 mg PO QHS 01/02/18 Aspirin E.C. [Ecotrin] 81 mg PO DAILY@0800 #30 tab 01/04/18 Atorvastatin Calcium [Lipitor] 40 mg PO QHS #30 tab 01/04/18 Carvedilol [Coreg (Beta Familia)] 6.25 mg PO BID #30 tab 01/04/18 Clopidogrel Bisulfate [Plavix] 75 mg PO DAILY #30 tab 01/04/18 Losartan Potassium [Cozaar] 25 mg PO DAILY #30 tab 01/04/18 Nitroglycerin [Nitroglycerin Patch] 1 ea TD DAILY #30 patch.td24 01/04/18 The following prescriptions were given: Aspirin E.C. [Ecotrin] 81 mg PO DAILY@0800 #30 tab Atorvastatin Calcium [Lipitor] 40 mg PO QHS #30 tab Clopidogrel Bisulfate [Plavix] 75 mg PO DAILY #30 tab Losartan Potassium [Cozaar] 25 mg PO DAILY #30 tab Nitroglycerin [Nitroglycerin Patch] 1 ea TD DAILY #30 patch.td24 Carvedilol [Coreg (Beta Familia)] 6.25 mg PO BID #30 tab Primary Care Physician: Chau Flaherty DO [Primary Care Provider] - Test Results: Test results from this visit will be discussed in further detail at your follow-up appointment, if applicable. Please Follow Up With: Tavo Alston MD
--- NOTE | 2018-01-04 10:58 | PCM.DC.SUM ---
Discharge Date and Diagnosis - Problem List Patient Problems: Active and Suspected Problems (Last Reviewed 01/02/18 @ 14:27 by Kimmy Chowdhury MD) Acute non-ST elevation myocardial infarction (NSTEMI) (Acute) Date of Admission: 01/02/18 Date of Discharge: 01/04/18 - Primary Discharge Diagnosis Active and Suspected Problems (Last Reviewed 01/02/18 @ 14:27 by Kimmy Chowdhury MD) Acute non-ST elevation myocardial infarction (NSTEMI) (Acute) - Secondary Discharge Diagnosis Chronic Problems (Last Reviewed 01/02/18 @ 14:27 by Kimmy Chowdhury MD) CAD (coronary artery disease) (Chronic) Successful PTCA/AARON of the mid DIAG#2 with a 2.25 x 12 Promus Synergy; 75%-->0%, no dissection. Successful PTCA/AARON of the Proximal LAD with a 3.5 x 20 Promus Synergy, post dilated with a 3.5 x 12 NC balloon; 85%-->0%, no dissection. Successful PCI with PTCA to the ostial DIAG#2 and DIAG#1 with a 2.0 x 12 Balloon; 75%--40%, no dissection. Anemia (Chronic) Bone metastases (Chronic) Osteoporosis (Chronic) Diverticular disease (Chronic) Testicular cancer (Chronic) left orchiectomy 1986 Prostate cancer (Chronic) Iron deficiency anemia (Chronic) CVD (cerebrovascular disease) (Chronic) HTN (hypertension) (Chronic) Hospital Course and Treatment Imaging Results: CTA Chest: IMPRESSION: 1. Normal CTA chest examination, without a demonstrated pulmonary embolism or arterial dissection. 2. Mixed pulmonary fibrosis and emphysema. Posterior subpleural right basilar linear atelectasis. 3. Possible osseous metastatic disease with T5 vertebral inferior endplate compression . Consults: cardiology Operations: None Procedures: Cardiac catheterization - LEFT HEART ASSESSMENT Left Ventricular Ejection Fraction: by LV Gram 20-25 % Depressed Left Ventricular systolic function Elevated Left Ventricular End Diastolic Pressure LVEDP: 23 mmHg Anterior Hypokinesis - Severe. Apical Akinesis. Inferior Apical Akinesis LEFT MAIN: Angiographically normal LEFT ANTERIOR DECENDING ARTERY: PROX LAD: 85 % Stenosis DISTAL LAD: 50 % Stenosis DIAGONAL 1: Ostial - 75 % Stenosis DIAGONAL 2: Mid - 75 % Stenosis CIRCUMFLEX ARTERY: OM 1: Proximal - 65 % Stenosis RIGHT CORONARY ARTERY: MID RCA: Moderate luminal irregularities up to 50% Summary of Care Provided: HPI: The patient is a 52 year old M with past medical history of metastatic castrate resistant prostate cancer, history of CAD with reported MIs, patient cannot tell me who he follows up with cardiology, hypertension, GERD, anxiety/depression who comes in with complaints of chest pain ongoing since 5 days. Patient follows with [facility]. Seen in the ED on 12/29/2017 with complaints of left lower extremity pain, giving a prescription for Dilaudid and per patient he has since started having chest pain, that also involves his abdomen, does not radiate, not associated with diaphoresis or shortness of breath. He presented to the emergency room today because chest pain was not getting better. Patient is a poor historian and is difficult to get a lot out of him because he was also recently sedated with fentanyl in the emergency department at the time of exam. His vitals in the ED pressure 117/81, later became hypertensive, heart rate 56, SPO2 97% on room air, temperature 98.1. EKG shows normal sinus rhythm, no acute ST-T changes, old Q waves in inferior leads Admitting blood work shows a RBC count of 8.0, Hb 12.2, platelet 147. D-dimer was 4.47. BMP showed sodium 141, potassium 3.0, chloride 105, bicarbonate 24, anion gap 12, BUN 9, creatinine 0.66. Initial troponin was 0.477 Hospital Course: 1. NSTEMI - Cardiac Cath was performed and 2 AARON were placed. We made changes to his medications including starting Lipitor, ASA and plavix, as well switching his metoprolol to coreg and start losartan. He will need to f/u with cardiology in a few weeks and will need an outpatient chemical stress to evaluate recovery of his EF. On the day of discharge his chest pain was completely resolved, given his other lesion that no interventions were performed, he was sent home with a nitro patch to help relieve the pain. He is to quit all tobacco products. 2. Metastatic prostate cancer to the bone - He was on oxycodone at home for pain control which controlled his pain but made him very sleepy. He was switched to PO dilaudid which gave him chest tightness which he would rather deal with. He is going to make another appointment with pain management since he was in the hospital yesterday and missed it. I will send him home on all of his other home medications. Discharge Activity: May not drive while taking narcotic pain medications. Call your doctor if you observe: Numbness or Tingling, Shortness of breath, Dizziness, Fainting spells, Chest pain Home Medications: Medications to take at Discharge ALPRAZolam [Xanax] 0.5 mg PO BID PRN PRN 02/18/17 Ergocalciferol [Vitamin D] 50,000 unit PO Q7D 02/18/17 Leuprolide Acetate [Lupron Depot] 30 mg IM UD MDD 6 month 02/18/17 Multivit with Iron,Minerals [Cerovite Jr] 1 tab PO DAILY 02/18/17 Omeprazole [Prilosec] 20 mg PO DAILY 02/18/17 Ropinirole HCl [Requip] 1 mg PO QHS 02/18/17 HYDROmorphone tablet [Dilaudid] 2 mg PO Q4H PRN PRN #120 tablet 12/29/17 Metoclopramide [Reglan] 10 mg PO 4X/DAY PRN 01/02/18 Mirtazapine [Remeron] 15 mg PO QHS 01/02/18 Aspirin E.C. [Ecotrin] 81 mg PO DAILY@0800 #30 tab 01/04/18 Atorvastatin Calcium [Lipitor] 40 mg PO QHS #30 tab 01/04/18 Carvedilol [Coreg (Beta Familia)] 6.25 mg PO BID #30 tab 01/04/18 Clopidogrel Bisulfate [Plavix] 75 mg PO DAILY #30 tab 01/04/18 Losartan Potassium [Cozaar] 25 mg PO DAILY #30 tab 01/04/18 Nitroglycerin [Nitroglycerin Patch] 1 ea TD DAILY #30 patch.td24 01/04/18 Following Prescrptions Were Given to Patient: Aspirin E.C. [Ecotrin] 81 mg PO DAILY@0800 #30 tab Atorvastatin Calcium [Lipitor] 40 mg PO QHS #30 tab Clopidogrel Bisulfate [Plavix] 75 mg PO DAILY #30 tab Losartan Potassium [Cozaar] 25 mg PO DAILY #30 tab Nitroglycerin [Nitroglycerin Patch] 1 ea TD DAILY #30 patch.td24 Carvedilol [Coreg (Beta Familia)] 6.25 mg PO BID #30 tab Primary Care Physician: Reynold,Chau, DO [Primary Care Provider] - Please Follow Up With: Tavo Alston MD Disposition: Home Minutes spent on discharge:: 35 Patient Condition:: Good Medical Necessity - Tobacco Use Smoking Status: Current every day smoker Tobacco Use: Cigarettes Meaningful Use Info Meaningful Use Diagnoses (Choose all that apply): AMI, CHF - AMI Aspirin given w/in 24hrs of arrival?: Yes ASA at discharge?: Yes Statins at discharge?: Yes Yoav/ARB at discharge?: Yes Beta Familia at discharge?: Yes Done w/ Acute CO measure.: Yes - CHF YOAV/ARB ordered at discharge?: Yes Documented LVEF (%): 25 Code Visit Inpatient E&M: 70018 Disch Hosp
--- NOTE | 2018-01-04 11:10 | DS.PCM_ITS ---
Discharge Date and Diagnosis - Problem List Patient Problems: Active and Suspected Problems (Last Reviewed 01/02/18 @ 14:27 by Kimmy Chowdhury MD) Acute non-ST elevation myocardial infarction (NSTEMI) (Acute) Date of Admission: 01/02/18 Date of Discharge: 01/04/18 - Primary Discharge Diagnosis Active and Suspected Problems (Last Reviewed 01/02/18 @ 14:27 by Kimmy Chowdhury MD) Acute non-ST elevation myocardial infarction (NSTEMI) (Acute) - Secondary Discharge Diagnosis Chronic Problems (Last Reviewed 01/02/18 @ 14:27 by Kimmy Chowdhury MD) CAD (coronary artery disease) (Chronic) Successful PTCA/AARON of the mid DIAG#2 with a 2.25 x 12 Promus Synergy; 75%-->0% , no dissection. Successful PTCA/AARON of the Proximal LAD with a 3.5 x 20 Promus Synergy, post dilated with a 3.5 x 12 NC balloon; 85%-->0%, no dissection. Successful PCI with PTCA to the ostial DIAG#2 and DIAG#1 with a 2.0 x 12 Balloon; 75%--40%, no dissection. Anemia (Chronic) Bone metastases (Chronic) Osteoporosis (Chronic) Diverticular disease (Chronic) Testicular cancer (Chronic) left orchiectomy 1986 Prostate cancer (Chronic) Iron deficiency anemia (Chronic) CVD (cerebrovascular disease) (Chronic) HTN (hypertension) (Chronic) Hospital Course and Treatment Imaging Results: CTA Chest: IMPRESSION: 1. Normal CTA chest examination, without a demonstrated pulmonary embolism or arterial dissection. 2. Mixed pulmonary fibrosis and emphysema. Posterior subpleural right basilar linear atelectasis. 3. Possible osseous metastatic disease with T5 vertebral inferior endplate compression . Consults: cardiology Operations: None Procedures: Cardiac catheterization - LEFT HEART ASSESSMENT Left Ventricular Ejection Fraction: by LV Gram 20-25 % Depressed Left Ventricular systolic function Elevated Left Ventricular End Diastolic Pressure LVEDP: 23 mmHg Anterior Hypokinesis - Severe. Apical Akinesis. Inferior Apical Akinesis LEFT MAIN: Angiographically normal LEFT ANTERIOR DECENDING ARTERY: PROX LAD: 85 % Stenosis DISTAL LAD: 50 % Stenosis DIAGONAL 1: Ostial - 75 % Stenosis DIAGONAL 2: Mid - 75 % Stenosis CIRCUMFLEX ARTERY: OM 1: Proximal - 65 % Stenosis RIGHT CORONARY ARTERY: MID RCA: Moderate luminal irregularities up to 50% Summary of Care Provided: HPI: The patient is a 52 year old M with past medical history of metastatic castrate resistant prostate cancer, history of CAD with reported MIs, patient cannot tell me who he follows up with cardiology, hypertension, GERD, anxiety/ depression who comes in with complaints of chest pain ongoing since 5 days. Patient follows with [facility]. Seen in the ED on 12/29/2017 with complaints of left lower extremity pain, giving a prescription for Dilaudid and per patient he has since started having chest pain, that also involves his abdomen, does not radiate, not associated with diaphoresis or shortness of breath. He presented to the emergency room today because chest pain was not getting better. Patient is a poor historian and is difficult to get a lot out of him because he was also recently sedated with fentanyl in the emergency department at the time of exam. His vitals in the ED pressure 117/81, later became hypertensive, heart rate 56, SPO2 97% on room air, temperature 98.1. EKG shows normal sinus rhythm, no acute ST-T changes, old Q waves in inferior leads Admitting blood work shows a RBC count of 8.0, Hb 12.2, platelet 147. D- dimer was 4.47. BMP showed sodium 141, potassium 3.0, chloride 105, bicarbonate 24, anion gap 12, BUN 9, creatinine 0.66. Initial troponin was 0.477 Hospital Course: 1. NSTEMI - Cardiac Cath was performed and 2 AARON were placed. We made changes to his medications including starting Lipitor, ASA and plavix, as well switching his metoprolol to coreg and start losartan. He will need to f/u with cardiology in a few weeks and will need an outpatient chemical stress to evaluate recovery of his EF. On the day of discharge his chest pain was completely resolved, given his other lesion that no interventions were performed , he was sent home with a nitro patch to help relieve the pain. He is to quit all tobacco products. 2. Metastatic prostate cancer to the bone - He was on oxycodone at home for pain control which controlled his pain but made him very sleepy. He was switched to PO dilaudid which gave him chest tightness which he would rather deal with. He is going to make another appointment with pain management since he was in the hospital yesterday and missed it. I will send him home on all of his other home medications. Discharge Activity: May not drive while taking narcotic pain medications. Call your doctor if you observe: Numbness or Tingling, Shortness of breath, Dizziness, Fainting spells, Chest pain Home Medications: Medications to take at Discharge ALPRAZolam [Xanax] 0.5 mg PO BID PRN PRN 02/18/17 Ergocalciferol [Vitamin D] 50,000 unit PO Q7D 02/18/17 Leuprolide Acetate [Lupron Depot] 30 mg IM UD MDD 6 month 02/18/17 Multivit with Iron,Minerals [Cerovite Jr] 1 tab PO DAILY 02/18/17 Omeprazole [Prilosec] 20 mg PO DAILY 02/18/17 Ropinirole HCl [Requip] 1 mg PO QHS 02/18/17 HYDROmorphone tablet [Dilaudid] 2 mg PO Q4H PRN PRN #120 tablet 12/29/17 Metoclopramide [Reglan] 10 mg PO 4X/DAY PRN 01/02/18 Mirtazapine [Remeron] 15 mg PO QHS 01/02/18 Aspirin E.C. [Ecotrin] 81 mg PO DAILY@0800 #30 tab 01/04/18 Atorvastatin Calcium [Lipitor] 40 mg PO QHS #30 tab 01/04/18 Carvedilol [Coreg (Beta Familia)] 6.25 mg PO BID #30 tab 01/04/18 Clopidogrel Bisulfate [Plavix] 75 mg PO DAILY #30 tab 01/04/18 Losartan Potassium [Cozaar] 25 mg PO DAILY #30 tab 01/04/18 Nitroglycerin [Nitroglycerin Patch] 1 ea TD DAILY #30 patch.td24 01/04/18 Following Prescrptions Were Given to Patient: Aspirin E.C. [Ecotrin] 81 mg PO DAILY@0800 #30 tab Atorvastatin Calcium [Lipitor] 40 mg PO QHS #30 tab Clopidogrel Bisulfate [Plavix] 75 mg PO DAILY #30 tab Losartan Potassium [Cozaar] 25 mg PO DAILY #30 tab Nitroglycerin [Nitroglycerin Patch] 1 ea TD DAILY #30 patch.td24 Carvedilol [Coreg (Beta Familia)] 6.25 mg PO BID #30 tab Primary Care Physician: Reynold,Chau, DO [Primary Care Provider] - Please Follow Up With: Tavo Alston MD Disposition: Home Minutes spent on discharge:: 35 Patient Condition:: Good Medical Necessity - Tobacco Use Smoking Status: Current every day smoker Tobacco Use: Cigarettes Meaningful Use Info Meaningful Use Diagnoses (Choose all that apply): AMI, CHF - AMI Aspirin given w/in 24hrs of arrival?: Yes ASA at discharge?: Yes Statins at discharge?: Yes Yoav/ARB at discharge?: Yes Beta Familia at discharge?: Yes Done w/ Acute CT measure.: Yes - CHF YOAV/ARB ordered at discharge?: Yes Documented LVEF (%): 25 Code Visit Inpatient E&M: 81640 Disch Hosp
== END 2018-01-04 14:10 | disposition home or self-care (01) | DRG 247 ==
LOC: ED 05:34 → PCU 11:14 → ICU 01-03 09:57
PROVIDERS: Internal Medicine Cardiovascular Disease; Admitting Provider Internal Medicine; Emergency Provider Emergency Medicine; Family Provider Family Medicine; PCP Family Medicine; Visit Provider Family Medicine
DX: I21.4 Non-ST elevation (NSTEMI) myocardial infarction (principal); C79.51 Secondary malignant neoplasm of bone; I25.110 Atherosclerotic heart disease of native coronary artery with unstable angina pectoris; I10 Essential (primary) hypertension; F17.210 Nicotine dependence, cigarettes, uncomplicated; C61 Malignant neoplasm of prostate; E78.5 Hyperlipidemia, unspecified; I25.2 Old myocardial infarction; I67.9 Cerebrovascular disease, unspecified; M81.0 Age-related osteoporosis without current pathological fracture; Z90.79 Acquired absence of other genital organ(s); Z85.47 Personal history of malignant neoplasm of testis; D50.9 Iron deficiency anemia, unspecified; K57.90 Diverticulosis of intestine, part unspecified, without perforation or abscess without bleeding
CPT/HCPCS: 36415; 71045; 71275; 80048; 80061; 81002; 84484; 85025; 85027; 85347; 85379; 85610; 85730; 92921; 92928; 92929; 93005; 93306; 93458; 99152; 99153; 99283; 99406; J7030; Q9967; A4216; C1725; C1769; C1874; C1887; C1894; C9600; C9601; J2405